=== PATIENT | male | born 1965 | race Caucasian/White ===

== ENCOUNTER 2018-01-04 16:17 | Inpatient (IN) | payer OTHER ==
--- OUTSIDE RECORDS SUMMARY | 2018-01-04 17:38 | XMS REPORT | Clinical Summary ---
:1965 Author Organization [facility] Address [address] [place] [address] Care Team Providers Name Role Phone Chavo Esquivel MD Primary Care Provider Allergies Active Allergy Reactions Severity Noted Date Comments Iodine And Iodide Other (See Comments) 04/02/2016 States it causes pain Containing Products Shellfish Derived Hives 04/02/2016 Current Medications Prescription Sig. Disp. Refills Start Date End Date Status sevelamer (RENVELA) 800 Take 800 mg by Active mg tablet mouth daily. atorvastatin (LIPITOR) Take 80 mg by Active 80 MG tablet mouth daily. B complex-vitamin Take 1 tablet Active C-folic acid by mouth daily. (NEPHRO-MARLEN) 0.8 mg tablet aspirin (ECOTRIN) 81 MG Take 81 mg by Active enteric coated tablet mouth daily. omeprazole (PriLOSEC) 40 Take 1 capsule 30 capsule 0 09/21/2016 Active MG capsuleIndications: (40 mg total) Gastroesophageal reflux by mouth daily disease, esophagitis before presence not specified breakfast. Active Problems Problem Noted Date ESRD (end stage renal disease) on dialysis 10/15/2016 Diabetes mellitus type 2 in obese 04/02/2016 Encounters Date Type Specialty Care Team Description 10/13/2017 Telephone General Surgery Racheal Edwards MA after 01/03/2017 Social History Tobacco Use Types Packs/Day Years Used Date Never Smoker Sex Assigned at Date Recorded Not on file Last Filed Vital Signs Not on file Plan of Treatment Health Maintenance Due Date Last Done Comments DIABETIC FOOT EXAM 1975 DIABETIC RETINAL EYE EXAM 1975 URINE MICROALBUMIN 1975 COLON CANCER SCREENING 2015 SHINGRIX VACCINE (#1) 2015 INFLUENZA VACCINE 03/16/2018 Results Not on fileafter 01/03/2017 Insurance Payer Benefit Plan / Group Subscriber ID Type Phone Address [employer]ISON [employer]OPER OPEN ACCESS/NETWORK xxxxxxxxxxx [facility] [place] MEDICARE MEDICARE PART A AND B xxxxxxxxxx Medicare [place], [place] Home: [address] [phone] [place] [phone] VARINDER JUAREZ Transplant Self 1965 Home: [address] [phone] [place] [phone]
[2018-01-04] MEDS ORDERED: CEFTRIAXONE/SWI 1gm 1 GM/10 ML SYR IVP SCH (21:00)
--- NOTE | 2018-01-04 21:26 | RAD REPORT ---
EXAM DESCRIPTION: MRI - Foot Right Wo Cont - 01/04/2018 9:01 pm CLINICAL HISTORY: Right foot swelling, pain and ulceration COMPARISON: December 30, 2017 x-ray TECHNIQUE: Axial, sagittal, and coronal magnetic images of the right foot were obtained FINDINGS: No significant abnormal signal within the bones is seen to suggest osteomyelitis. Diffuse edema is present within subcutaneous tissues which may indicate cellulitis. Soft tissue abscess is not seen. No fracture or or dislocation is noted. . IMPRESSION: No evidence of osteomyelitis
[2018-01-04] MEDS: CEFTRIAXONE/SWI 1gm 1 GM/10 ML SYR IVP SCH (21:34)
[2018-01-05 05:39] LABS: Urine Appearance CLOUDY; Urine Bilirubin NEGATIVE (NEG); Urine Blood 3+ (NEG); Urine Color YELLOW; Urine Glucose TRACE (NEG); Urine Protein 2+ (NEG); Urine Urobilinogen 0.2 mg/dL (0.2-1.0)
[2018-01-05 05:41] LABS: Urine Microscopic Reflex ORDER UMIC
[2018-01-05 06:15] LABS: Urine Bacteria <20 /HPF (NONE SEEN); Urine Culture Reflex Order REFLEXED; Urine RBC >50 /HPF (NONE SEEN)
[2018-01-05] MEDS: SEVELAMER CARBONATE 800 MG TABLET PO SCH ×4 (08:00→17:00)
[2018-01-05] MEDS ORDERED: INSULIN DETEMIR 100 UNIT/1 ML INSULIN SQ SCH (09:00)
[2018-01-05] MEDS: CODEINE 30MG/APAP 300MG TAB PO PRN ×2 (09:36→20:00)
[2018-01-05] MEDS: ASPIRIN 81 MG CHEWABLE TABLET PO SCH (09:38)
[2018-01-05] MEDS: CEFTRIAXONE/SWI 1gm 1 GM/10 ML SYR IVP SCH ×2 (09:38→20:01)
[2018-01-05] MEDS: INSULIN LISPRO 100 UNIT/1 ML SQ SCH ×3 (09:39→17:00)
[2018-01-05 17:21] LABS: Absolute Lymphocytes (CBC) 1.2 K/uL (0.7-4.9); Absolute Monocytes 0.5 K/uL (0.1-1.3); Absolute Neutrophil 4.4 K/uL (1.8-8.0); Basophils % 0.1 % (0-1.3); Eosinophils % 0.1 % (0-4.4); Hematocrit 33.7 % (39.6-49.0); Lymphocytes % 19.2 % (15.3-44.8); MCH 34.2 pg (27.0-35.0); MCV 99.1 fL (80-100); MPV 8.3 fL (7.6-11.3)
[2018-01-05] MEDS ORDERED: GLUCAGON 1 MG/VIAL IM PRN (17:23)
[2018-01-05] MEDS ORDERED: D50W 25 GM/50 ML SYRINGE IV PRN (17:23)
[2018-01-05 17:26] LABS: Potassium 4.2 mEq/L (3.6-5.0)
[2018-01-05] MEDS: COLLAGENASE 30 GM OINTMENT TOP SCH (17:30)
[2018-01-05] MEDS: INSULIN DETEMIR 100 UNIT/1 ML INSULIN SQ SCH (17:30)
--- NOTE | 2018-01-05 20:30 | CON ---
History Of Present Illness: The patient has significant history of diabetes mellitus, end-stage rafael l disease, came in with right foot diabetic foot ulcer. Complains of being tender down to the bone. No other problems. Currently being treated with IV antibiotic including Rocephin. Past Medical History: Triple bypass surgery, AV fistula for dialysis, and gastric bypass surgery aft er which he has lost 70 pounds. Family History: Noncontributory. Medications: Rocephin. See MARs for other medication. Allergies: IODINE AND SHELLFISH. Review of Systems: A 10-point review was performed. Physical Examination: General: This is a 52-year-old male, sitting in bedside chair. Denies any headache, nausea, vomitin g, chest pain, abdominal pain, constipation, or diarrhea. Vital Signs: Temperature 97.8, pulse 68, respiration 18, blood pressure 159/79. HEENT: Unremarkable. Neck: Supple. Lungs: Basal crackles. Heart: S1, S2. Regular. Abdomen: Soft, nontender. Bowel sounds positive. Extremity: Right foot ulceration noted on the dorsal aspect of right foot on the metatarsal region a norman third and fourth metatarsal. Diagnostic Data: MRI of the foot shows no evidence of osteomyelitis. Laboratory Data: No CBC has been ordered. Chemistry shows glucose of 127. Assessment And Plan: Right foot cellulitis and diabetic foot ulcer. Recommend to apply Santyl to th e wound site with cover with foam and continue Rocephin. CBC and CMP to be ordered. We will follow the patient closely. Thank you Dr. Freeman for consult. NF/MODL Voice ID: [id number] Report ID: [id number]
--- NOTE | 2018-01-05 23:21 | HP ---
Date of Admission: 01/04/2018 Chief Complaint: Pain, right foot. History Of Present Illness: A 52-year-old male who was seen in the office last week for pain and swe lling and redness of the right foot. He was found to have cellulitis with minimal drainage. Drainag e was cultured. The patient wanted the IV antibiotic therapy through dialysis site. I spoke to his nut grinder, Dr. Savage, and arranged for vancomycin. The patient was getting vancomycin dialysis. H is cultures came back positive for Proteus. I called the patient and explained. He wanted to again have antibiotics done through the dialysis. A copy of the culture report was faxed to his dialysis d octor. He claimed that his wound was getting better; however, later his brother visited and looked a t the wound and to him it looked worse and he was brought to the office. At this point, he was found to have evidence of enlargement of the area of infection. In view of continued symptoms worsening, the patient is admitted for IV antibiotic therapy and possible debridement of the foot wound. Past Medical History: Positive for end-stage renal disease, on dialysis. Other history includes; 1.History of coronary artery disease. 2.Hypertension. 3.Hyperlipidemia. Past Surgical History: Positive for; 1.Coronary angioplasty. 2.Coronary bypass surgery. Family History: Noncontributory. Personal History: He is not a smoker. Allergies: HE IS ALLERGIC TO IODINE DYE AND SHELLFISH. Home Medicines: Please refer to chart. He is on insulin. Physical Examination: General: Revealed a 52-year-old male, alert, in moderate pain. HEENT: Negative. Neck: Supple. JVD negative. Chest: Old surgical scar, otherwise negative. Heart: Regular. Abdomen: Soft. Extremities: There is an area of open wound with minimal extubation of the right foot. There are pi gmentary changes around the open wound. Laboratory Data: White count not available. Assessment: 1.Infected wound and cellulitis, right foot. 2.Type 2 diabetes, on insulin. 3.Known coronary artery disease. 4.Status post coronary artery bypass surgery and angioplasty. 5.History of hyperlipidemia. Plan: The patient is started on Rocephin as for wound culture. His wound is re-cultured. The patie nt had a consult with Infectious Disease as well as Surgery in formulating a plan for his infection. RRK/MODL Voice ID: [id number]
--- NOTE | 2018-01-06 03:07 | CON ---
Date of Consultation: 01/05/2018 Additional Consulting Physician: Dr. Freeman. Reason For Consultation: Elevated BUN and creatinine, hypertension. History Of Present Illness: This is a 52-year-old gentleman, well known to me from the dialysis, [facility] significant past medical history of: 1.Hypertension. 2.End-stage renal disease, on hemodialysis, Wednesday, Wednesday, Wednesday at [facility]. 3.Hyperlipidemia. 4.Secondary hyperparathyroidism. 5.Diabetes, complicated with neuropathy and nephropathy. The patient came to the hospital with foot infection for his right foot. No trauma. No fever or chi lls. The patient had dialysis day before without any complication. Past Medical History: Include: 1.Hypertension. 2.Hyperlipidemia. 3.Diabetes. 4.Coronary artery disease status post [facility], complicated with congestive heart failure. 5.End-stage renal disease, on hemodialysis, Wednesday, Wednesday, Wednesday. Past Surgical History: Include: 1.PermCath. 2.AV fistula. 3.Appendectomy. 4.CABG. 5.PTCA. Social History: Denies smoking. Denies drinking. Denies drug abuse. Family History: Positive for diabetes. Review of Systems: Head and Neck: No red eye. No ear pain. GI: No nausea. No vomiting. : No polyuria. No dysuria. No hematuria. PROGRAMMER: Not applicable. Respiratory: No shortness of breath. Cardiovascular: No chest pain. Neurologic: Has neuropathy. Musculoskeletal: Has foot pain. Endocrine: No polydipsia. Skin: No rash. Physical Examination: General: When I saw the patient, the patient was lying in bed, slightly on pain in his foot. Vital Signs: Blood pressure 149/69, pulse of 68. Chest: Crackles in the base. Heart: S1, S2. Regular. Abdomen: Soft, nontender. Extremities: Trace edema, erythema with bruises on the right dorsal area of his foot. Laboratory Data: WBC 6.1, hemoglobin and hematocrit 11.6/33.7, platelets 153. Sodium 134, potassium 4.2, bicarb 28, BUN 25, creatinine 5.5, calcium of 9. Current Medications: Include: 1.Aspirin. 2.Ceftriaxone. 3.Renvela. 4.Insulin. Assessment And Plan: 1.End-stage renal disease. Normal volume. No hyperkalemia. Slight alkalosis. I am going to arran ge for dialysis today as per his schedule. 2.Hypertension, controlled, optimal. Continue current medication. 3.Anemia. No need for CELI. 4.Secondary hyperparathyroidism. Continue binder. 5.Foot infection. Continue current antibiotic. We will follow up culture. ALEXANDRA Voice ID: [id number] Report ID: [id number]
[2018-01-06] MEDS: SEVELAMER CARBONATE 800 MG TABLET PO SCH ×3 (08:00→17:00)
[2018-01-06] MEDS: INSULIN DETEMIR 100 UNIT/1 ML INSULIN SQ SCH (09:00)
[2018-01-06] MEDS: COLLAGENASE 30 GM OINTMENT TOP SCH (09:00)
[2018-01-06] MEDS: CEFTRIAXONE/SWI 1gm 1 GM/10 ML SYR IVP SCH ×2 (09:50→21:37)
[2018-01-06] MEDS: ASPIRIN 81 MG CHEWABLE TABLET PO SCH (09:50)
[2018-01-06] MEDS: INSULIN LISPRO 100 UNIT/1 ML SQ SCH ×3 (09:50→17:32)
[2018-01-06] MEDS: CODEINE 30MG/APAP 300MG TAB PO PRN ×2 (09:56→23:45)
--- NOTE | 2018-01-06 13:21 | P.CNS ---
Date of Consult: 01/05/18 Reason for Consult: infected diabetic foot ulcer History of Present Illness: 52 y/o male with cellulitis and diabetic foot ulcer , new onset rigth foot, unknown etiology Allergies iodine Allergy (Severe, Verified 04/22/15 23:25) Shortness of breath Iodine-Iodine Containing Allergy (Severe, Uncoded 04/22/15 23:25) Shortness of breath shell fish Allergy (Intermediate, Uncoded 04/22/15 23:25) Hives SHELLFISH Allergy (Intermediate, Uncoded 04/22/15 23:25) Hives/Rash Home Medications: Insulin Aspart [Novolog] 5 unit SQ TIDWM 07/17/14 Insulin Glargine Human [Lantus*] 30 units SUBQ DAILY 07/17/14 Sevelamer Carbonate [Renvela*] 2,400 mg PO TIDWM 09/24/14 Aspirin 81 mg PO DAILY 02/08/15 - Past Medical/Surgical History Diabetic: Yes -: HTN -: Hyperlipidemia -: PA -: IDDM -: CHF -: cellulitis on face -: CABG x 3 vessels -: Cardiac cath with 1 stent -: Appy -: upper left arm HD graph - Family History Mother Medical History: Hypertension, Diabetes, Cancer, Liver disease, Other (see notes ) Notes: Breast CA - Social History Smoking Status: Never smoker Alcohol use: No CD- Drugs: No Caffeine use: Yes Review of Systems General: Fever (no), Chills (no) Eyes: Unremarkable ENT: Unremarkable Respiratory: Unremarkable Cardiovascular: Unremarkable Gastrointestinal: Unremarkable Genitourinary: Other (ESRD) Musculoskeletal: As per HPI Integumentary: As per HPI Physical Examination Temp Pulse Resp BP Pulse Ox 97.9 F 69 20 153/70 H 98 01/06/18 08:00 01/06/18 08:00 01/06/18 08:00 01/06/18 08:00 01/06/18 08:00 General: Alert, In no apparent distress, Oriented x3 HEENT: PERRLA, EOMI, Sclerae nonicteric Neck: Supple Respiratory: Clear to auscultation bilaterally Gastrointestinal: Soft and benign Integumentary: Skin breakdown, Tenderness/swelling, Erythema, Warmth, Diabetic ulcer Neurological: Normal speech Laboratory Data (last 24 hrs) 01/05/18 16:56: Sodium 134 L, Potassium 4.2, BUN 25 H, Creatinine 5.55 H*, Glucose 177 H 01/05/18 16:56: WBC 6.1, Hgb 11.6 L, Hct 33.7 L, Plt Count 153 Conclusions/Impression: excional debridement under anesthesia per pt request due to pain BAR fully explained including but not limited to infection, bleeding, damage to adjacent structures. non healing wound PA even Pt counseled about diabetes control and proper shoes
--- NOTE | 2018-01-06 13:24 | P.PN ---
Subjective Date of Service: 01/06/18 Chief Complaint: ESRD, infected diabetic foot ulcer right Subjective: No new changes, Improving Review of Systems General: Unremarkable Eyes: Unremarkable Cardiovascular: Unremarkable Gastrointestinal: Unremarkable Musculoskeletal: As per HPI Integumentary: As per HPI Physical Examination - Vital Signs Temperature: 97.9 F Blood Pressure: 153/70 Pulse: 69 Respirations: 20 Pulse Ox (%): 98 - Physical Exam General: Alert, Oriented x3, Cooperative HEENT: PERRLA, EOMI Neck: Supple Gastrointestinal: Soft and benign Integumentary: Skin breakdown, Tenderness/swelling, Erythema, Warmth, Diabetic ulcer - Studies Laboratory Data (last 24 hrs) 01/05/18 16:56: Sodium 134 L, Potassium 4.2, BUN 25 H, Creatinine 5.55 H*, Glucose 177 H 01/05/18 16:56: WBC 6.1, Hgb 11.6 L, Hct 33.7 L, Plt Count 153 Microbiology Data (last 24 hrs): 01/05/18 04:25 Wound - Right Foot Gram Stain - Final 01/05/18 04:25 Wound - Right Foot Gram Stain - Final Imagings Data: MRI, No osteo Assessment And Plan - Plan NPO after midnight Excisional debridement BAR explained again IV abx
--- NOTE | 2018-01-06 16:19 | PN ---
Subjective: The patient sitting in bedside chair, not in any acute distress. Objective: Vital Signs: Temperature 97, respirations 16, blood pressure 150/70. Lungs: Basal crackles. Heart: S1, S2. Regular. Abdomen: Soft, nontender. Bowel sounds positive. Extremities: 2+ edema in the right leg, 1+ edema in the left leg. Laboratory Data: Shows WBC 6, hemoglobin 11.6, platelets are 153. Chemistry; sodium 134, potassium 4.2, chloride 96, bicarb 28, BUN 25, creatinine 5.5, glucose is 177. Assessment And Plan: Micro data showing gram-negative rods in the right foot wound culture, possibly either Pseudomonas or E. coli, most likely. We will recommend the patient to be on Levaquin pending culture reports. Continue Rocephin for now. We will follow the patient closely. NF/MODL Voice ID: [id number] Report ID: [id number]
[2018-01-06] MEDS: ENOXAPARIN 30 MG/0.3 ML SQ SCH ×2 (17:00→17:33)
--- NOTE | 2018-01-07 01:14 | PN ---
Date of Progress Note: 01/06/2018 Subjective: The patient is doing well, status post dressing on his foot. No nausea. No vomiting. Afebrile. Admitted with foot infection. Workup did not show any osteomyelitis. Physical Examination: Vital Signs: Blood pressure of 149/74, pulse of 60, afebrile. Chest: Clear to auscultation. Heart: S1, S2. Regular. Abdomen: Soft, nontender. Extremities: Dressing on the right foot. Trace edema on the left. Laboratory Data: WBC 6.1, H and H 11.6/33.7. Sodium 134, potassium 4.2, bicarb 28, BUN 25, creatini ne 5.5, and calcium 9. Medications: Current medications the patient is on include; 1.Aspirin. 2.Ceftriaxone. 3.Renvela. 4.Insulin. 5.Codeine. Assessment And Plan: 1.End-stage renal disease. Normal volume. We will arrange for dialysis tomorrow. 2.Hypertension, controlled, optimal. Continue current medication. 3.Foot infection. Diabetic foot. Culture gram-negative. We are going to continue current antibiot ic. We will follow up with ID if possible to place him on Levaquin. Plan for debridement tomorrow. 4.Diabetes, as by primary. MAE/TENNILLE Voice ID: [id number] Report ID: [id number]
[2018-01-07 06:52] VITALS: BMI 39.3
[2018-01-07] MEDS: SEVELAMER CARBONATE 800 MG TABLET PO SCH ×3 (08:00→16:55)
[2018-01-07] MEDS: INSULIN LISPRO 100 UNIT/1 ML SQ SCH ×3 (08:00→16:18)
[2018-01-07] MEDS: ASPIRIN 81 MG CHEWABLE TABLET PO SCH (09:00)
[2018-01-07] MEDS: CEFTRIAXONE/SWI 1gm 1 GM/10 ML SYR IVP SCH ×2 (09:00→21:15)
[2018-01-07] MEDS: INSULIN DETEMIR 100 UNIT/1 ML INSULIN SQ SCH (09:00)
[2018-01-07] MEDS: COLLAGENASE 30 GM OINTMENT TOP SCH (09:00)
[2018-01-07] MEDS ORDERED: NA CHLORIDE 0.9% 500 ML ONE (12:39)
[2018-01-07] MEDS ORDERED: PROPOFOL 200 MG/20 ML VIAL IV ONE (12:50)
[2018-01-07] MEDS ORDERED: MIDAZOLAM HCL 2 MG/2 ML INJ ONE (12:50)
[2018-01-07] MEDS ORDERED: FENTANYL CITR 100 MCG/2 ML ONE (12:51)
[2018-01-07] MEDS ORDERED: ONDANSETRON HCL 40 MG/20 ML VIAL ONE (12:51)
[2018-01-07] MEDS ORDERED: BUPIVACAINE 0.5% PF 10 ML VIAL ONE (12:56)
--- NOTE | 2018-01-07 13:11 | PN ---
Date of Progress Note: 01/06/2018 The patient was seen yesterday. The patient's wound looks better, but there is a small amount of tara grenous tissue around the wound. The patient is scheduled for surgery 01/07/2018. I started the pat ient on Lovenox for prevention of DVT. SIN/TENNILLE Voice ID: [id number] Report ID: [id number]
--- NOTE | 2018-01-07 13:11 | PN ---
The patient is doing better. His temperature is normal. The patient is scheduled for surgery this m orning. There is no active drainage anymore. The patient will be continued on the same antibiotic. SIN/TENNILLE Voice ID: [id number] Report ID: [id number]
--- NOTE | 2018-01-07 13:20 | P.BOP ---
Preoperative diagnosis: right foot infected necrotic diabetes ulcer Postoperative diagnosis: same Primary procedure: Excisional subcutaneous debridement R foot infected necrotic diabetes ulcer Secondary procedure: 4 x 3.5 x 1.5 cm Estimated blood loss: <5cc Specimen: culture Findings: right foot infected necrotic diabetes ulcer Anesthesia: General Complications: None Drain(s): Other Transferred to: Recovery Room Condition: Good
[2018-01-07] MEDS: ENOXAPARIN 30 MG/0.3 ML SQ SCH (16:54)
[2018-01-07 17:32] LABS: Albumin 3.5 g/dL (3.2-5.5); Phosphorus 4.4 mg/dL (2.5-4.3); Potassium 4.6 mEq/L (3.6-5.0)
[2018-01-07] MEDS ORDERED: NA CHLORIDE 0.9% 100 ML ONE (21:12)
--- NOTE | 2018-01-07 21:40 | PN ---
Subjective: The patient had a right foot DFU, which has been debrided by Dr. Tyson. The patient is doing well, getting dialyzed. Currently being treated with IV antibiotic including Rocephin. Objective: Vital Signs: Temperature 98, pulse 73, respirations 16, and blood pressure 119/60. Assessment And Plan: Right knee diabetic foot ulcer, status post debridement. Wound is under surgic al dressing. Continue Rocephin for now. We will re-evaluate the patient for possible discharge with oral antibiotic if wound looks good. We will follow the patient closely. NF/MODL Voice ID: [id number] Report ID: [id number]
[2018-01-07 21:42] VITALS: O2SAT 95
--- NOTE | 2018-01-08 01:20 | OP ---
Date of Procedure: 01/07/2018 Surgeon: Júnior Tyson MD Breaker Mechanic: None. Preoperative Diagnosis: Right foot infected necrotic diabetic ulcer. Postoperative Diagnosis: Right foot infected necrotic diabetic ulcer. Procedure: Excisional subcutaneous debridement of right foot infected necrotic diabetic ulcer, 4 x 3 .5 x 1.5 cm. Estimated Blood Loss: Less than 5 cc. Specimen: Necrotic tissue and pus. Findings: Necrotic ulcer all the way down to tendon. Tendon seems to be viable and muscle seems to be viable. Packing is wet-to-dry. Indications: This is a case of a 52-year-old patient with renal failure and hemodialysis, comes to [facility] with an infected foot ulcer. Benefits, alternatives, and risks of debridement fully explained to t he patient, which include but are not limited to infection, bleeding, damage to adjacent structures, anesthesia complication, nonhealing wound, AR, and even . He also understands this may not reli belkis any symptoms. He might need more than one surgical intervention. He will require wound care. T he patient signed a consent. Description Of Procedure: The patient was brought to the operating room, placed in supine position. Anesthesia was given without complication. A time-out was called. The right foot was prepped and d raped in usual sterile fashion. Local anesthesia was applied followed by a sharp incision of the ski n. The necrotic tissue was removed. There were some areas that were still viable so we are going to leave behind. There was no necrosis. The necrotic area was removed. Pus was obtained for culture. Tendons were exposed but they do not seem to be involving the necrosis. The area was profusely irr igated. Hemostasis obtained. The area was packed with wet-to-dry dressing. The patient tolerated the procedure well. The patient on his way to recovery in stable co ndition. HM/MODL Voice ID: [id number] Report ID: [id number]
--- NOTE | 2018-01-08 02:48 | PN ---
Date of Progress Note: 01/07/2018 Chief Complaint: End-stage renal disease, on dialysis. Subjective: The patient presented to the hospital because of nonhealing lower extremity wound, osteomyelitis. He is undergoing debridement today. Dialysis is scheduled for today for metabolic clearance and to obtain ultrafiltration. Review of Systems: Denies fever or chills. Physical Examination: Lungs: Clear to auscultation bilaterally. Heart: S1, S2. Abdomen: Soft, benign. Extremities: Right foot erythema with some necrotizing changes. Neurologic: Moving extremities. Cranial nerves intact. Laboratory Data: Sodium 134, potassium 4.6, chloride 97, CO2 of 27, BUN 37, creatinine 6.68, calcium 8.7, phosphorus 4.4, albumin 3.5. Impression And Plan: 1. End-stage renal disease. Continue dialysis with ultrafiltration scheduled for today. 2. Continue p.o. fluid restriction to control dilutional hyponatremia. 3. Hypertension. Blood pressure in acceptable control. Continue medication. 4. Anemia and chronic kidney disease. Monitor hemoglobin level. Adjust CELI as needed. 5. Renal osteodystrophy. Phosphorus level at target range. Monitor electrolytes. Continue low phosphorus diet and binders. 6. Hypoalbuminemia. Increase p.o. protein intake. 7. Lower extremity cellulitis, osteomyelitis. The patient is undergoing debridement. Continue wound care and antibiotics of broad spectrum. LILI/TENNILLE Voice ID: [id number] Report ID: [id number]
[2018-01-08] MEDS: SEVELAMER CARBONATE 800 MG TABLET PO SCH ×3 (08:00→11:15)
[2018-01-08] MEDS: INSULIN LISPRO 100 UNIT/1 ML SQ SCH ×2 (08:00→11:15)
[2018-01-08] MEDS: INSULIN DETEMIR 100 UNIT/1 ML INSULIN SQ SCH (08:57)
[2018-01-08] MEDS: ASPIRIN 81 MG CHEWABLE TABLET PO SCH (08:57)
[2018-01-08] MEDS: CEFTRIAXONE/SWI 1gm 1 GM/10 ML SYR IVP SCH (08:58)
[2018-01-08] MEDS: COLLAGENASE 30 GM OINTMENT TOP SCH (08:58)
[2018-01-08 11:13] VITALS: TEMP 98.8
--- NOTE | 2018-01-08 11:35 | P.DS ---
Admission Date: 01/04/18 Discharge Date: 01/08/18 Primary Care Provider: Dr. Freeman(I am covering for him) Disposition: ROUTINE DISCHARGE Discharge Condition: GOOD Reason for Admission: ESRD, infected diabetic foot ulcer right Consultations: Surgery-Dr. Tyson Nephrology-Dr. Kulkarni Infectious disease-Dr. Scales Procedures: Surgery: Date of Procedure: 01/07/2018 Surgeon: Júnior Tyson MD General Service Technician: None. Preoperative Diagnosis: Right foot infected necrotic diabetic ulcer. Postoperative Diagnosis: Right foot infected necrotic diabetic ulcer. Procedure: Excisional subcutaneous debridement of right foot infected necrotic diabetic ulcer, 4 x 3.5 x 1.5 cm. Estimated Blood Loss: Less than 5 cc. Specimen: Necrotic tissue and pus. Findings: Necrotic ulcer all the way down to tendon. Tendon seems to be viable and muscle seems to be viable. Packing is wet-to-dry. - Problems (1) End stage renal disease Current Visit: Yes Status: Chronic (2) Diabetes mellitus Current Visit: Yes Status: Chronic Qualifiers: Diabetes mellitus type: type 2 Diabetes mellitus local intermodal truck driver insulin use: with local intermodal truck driver use Diabetes mellitus complication status: with skin complications Diabetes mellitus complication detail: with foot ulcer Qualified Code(s): E11.621 - Type 2 diabetes mellitus with foot ulcer; L97.509 - Non-pressure chronic ulcer of other part of unspecified foot with unspecified severity; Z79.4 - prison (current) use of insulin (3) Obesity Current Visit: Yes Status: Chronic Qualifiers: Obesity type: due to excess calories Obesity classification: adult class 2 (BMI 35 - 39.9) Serious obesity comorbidity presence: with serious comorbidity Body mass index: BMI 38.0-38.9 Qualified Code(s): E66.01 - Morbid (severe) obesity due to excess calories; Z68.38 - Body mass index (BMI) 38.0-38.9, adult (4) Diabetic foot infection Onset Date: 01/05/18 Current Visit: Yes Status: Acute Brief History of Present Illness: 52-year-old male hospitalized for necrotic diabetic foot ulcer to the right foot. Patient with history of diabetes and end-stage renal disease on dialysis. Patient started on antibiotic therapy Hospital Course: During his stay. Patient was evaluated by surgery and infectious disease. Surgery recommended debridement. Excisional subcutaneous debridement of right foot was done. Necrotic tissue was reported to be all the way down to the tendon. Tendon seemed to be viable. Wound culture was positive for Proteus. MRI did not show any osteomyelitis. Patient has done well post procedure. At discharge patient will continue with Levaquin 250 mg every 48 hr for 5 doses. Patient will follow up at [facility] in 1 week to continue his care and treatment. Patient to continue with current wound care changes. Patient has diabetes. Patient will continue with his insulin regimen. Recommendation is to maintain blood sugars less 140 fasting and less than 2 after meals. Further adjustment can be done by his PCP. Patient has end-stage renal disease. Patient will continue with dialysis treatment as scheduled. Vital Signs/Physical Exam: Temp Pulse Resp BP Pulse Ox 98.8 F 87 16 148/65 H 99 01/08/18 08:00 01/08/18 08:00 01/08/18 08:00 01/08/18 08:00 01/08/18 08:00 General: Alert, In no apparent distress, Oriented x3, Cooperative HEENT: Atraumatic Neck: Supple Respiratory: Clear to auscultation bilaterally, Normal air movement Cardiovascular: Normal pulses, Regular rate/rhythm Gastrointestinal: Normal bowel sounds, Soft and benign, Non-distended, No masses , No rebound, No guarding Musculoskeletal: No tenderness, No warmth Integumentary: Other (Diabetic wound to the right foot appears stable. No exudate noted. Mild erythema noted. Postsurgical changes noted.) Neurological: Normal speech, Normal strength at 5/5 x4 extr, Normal tone, Normal affect Laboratory Data at Discharge: WBC 6.1 K/uL (4.3-10.9) 01/05/18 16:56 Hgb 11.6 g/dL (13.6-17.9) L 01/05/18 16:56 Hct 33.7 % (39.6-49.0) L 01/05/18 16:56 Plt Count 153 K/uL (152-406) 01/05/18 16:56 Sodium 134 mEq/L (135-145) L 01/07/18 16:14 Potassium 4.6 mEq/L (3.6-5.0) 01/07/18 16:14 BUN 37 mg/dL (6-20) H 01/07/18 16:14 Creatinine 6.68 mg/dL (0.61-1.24) H* D 01/07/18 16:14 Glucose 101 mg/dL (65-120) 01/07/18 16:14 Phosphorus 4.4 mg/dL (2.5-4.3) H 01/07/18 16:14 Home Medications: Insulin Aspart [Novolog] 5 unit SQ TIDWM 07/17/14 Insulin Glargine Human [Lantus*] 30 units SUBQ DAILY 07/17/14 Sevelamer Carbonate [Renvela*] 2,400 mg PO TIDWM 09/24/14 Aspirin 81 mg PO DAILY 02/08/15 Collagenase [Santyl Ointment*] 1 appl TOP DAILY #30 tube 01/08/18 Levofloxacin [Levaquin] 250 mg PO Q48H #5 tab 01/08/18 Tramadol HCl [Ultram] 50 mg PO TID PRN #15 tablet 01/08/18 New Medications: Collagenase [Santyl Ointment*] 1 appl TOP DAILY #30 tube Levofloxacin [Levaquin] 250 mg PO Q48H #5 tab Tramadol HCl [Ultram] 50 mg PO TID PRN #15 tablet PRN Reason: Pain Patient Discharge Instructions: 1. Patient will need to follow up with his PCP in 1 week to follow up this hospitalization. 2. Patient presented with necrotic diabetic foot ulcer to the right foot. Patient seen by surgery and infectious disease. Surgery was performed for debridement. MRI showed no osteomyelitis. Culture was positive for Proteus. At discharge patient will continue with wound care as directed by surgery and infectious disease. Patient will continue with Levaquin 250 mg every 48 hr up to 5 doses. Patient will follow up at the wound Care Center within 1 week to continue his care and close monitoring. Recommendation on no excessive walking. Tramadol 50 mg 1 pill 3 times a day as needed for pain will be provided to be use as needed. 3. Patient has diabetes. Patient will continue with his insulin regimen. Recommendation is to maintain blood sugars less 140 fasting and less than 200 after meals. Further adjustment can be done by his PCP. 4. Patient has end- stage renal disease. Patient will continue with dialysis as directed. Diet: ADA Activity: Fall precautions Time spent managing pt's care (in minutes): 55
[2018-01-08 14:43] VITALS: BP 138/58
--- NOTE | 2018-01-09 00:17 | PN ---
Date of Progress Note: 01/08/2018 Chief Complaint: End-stage renal disease, on dialysis. History Of Present Illness: The patient received dialysis yesterday. The patient was admitted to the hospital because of nonhealing lower extremity wound , diabetic foot infection with osteomyelitis. He underwent debridement yesterday. Review of Systems: Denies fever, chills. Physical Examination: Lungs: Clear to auscultation bilaterally. Heart: S1 and S2. Abdomen: Soft, benign. Extremities: Dressing in place. Impression And Plan: 1. End-stage renal disease. The patient had dialysis done yesterday. Continue on renal diet, p.o. fluid restriction. Monitor renal panel. 2. Hypertension. Blood pressure in acceptable control. Continue medication. 3. Anemia due to chronic kidney disease. Monitor hemoglobin level. Adjust CELI. 4. Renal osteodystrophy. Continue renal diet and binders. Phosphorus level is controlled. Calcium is within normal limits. 5. Osteomyelitis, diabetic foot infection. Continue antibiotics and wound care. 6. Hypoalbuminemia. Increase p.o. protein intake. LILI/TENNILLE Voice ID: [id number] Report ID: [id number] MTDD
== END 2018-01-08 14:05 | disposition home or self-care (01) | DRG 264 ==
LOC: 2ND 17:37
PROVIDERS: ADMIT Internal Medicine; ATTEND Internal Medicine
PROC: 5A1D70Z Performance of Urinary Filtration, Intermittent, Less than 6 Hours Per Day (ICD-10-PCS; 2018-01-05)
PROC: 5A1D70Z Performance of Urinary Filtration, Intermittent, Less than 6 Hours Per Day (ICD-10-PCS; 2018-01-05)
PROC: 0JBQ0ZZ Excision of Right Foot Subcutaneous Tissue and Fascia, Open Approach (ICD-10-PCS; principal; 2018-01-07 12:30)
DX: E11.52 Type 2 diabetes mellitus with diabetic peripheral angiopathy with gangrene (principal); N18.6 End stage renal disease; L03.115 Cellulitis of right lower limb; I96 Gangrene, not elsewhere classified; I12.0 Hypertensive chronic kidney disease with stage 5 chronic kidney disease or end stage renal disease; E66.01 Morbid (severe) obesity due to excess calories; Z68.38 Body mass index [BMI] 38.0-38.9, adult; E11.22 Type 2 diabetes mellitus with diabetic chronic kidney disease; Z79.4 Long term (current) use of insulin; B96.4 Proteus (mirabilis) (morganii) as the cause of diseases classified elsewhere; D63.1 Anemia in chronic kidney disease; N25.0 Renal osteodystrophy; E88.09 Other disorders of plasma-protein metabolism, not elsewhere classified; E11.621 Type 2 diabetes mellitus with foot ulcer; E11.628 Type 2 diabetes mellitus with other skin complications; Z91.013 Allergy to seafood
CPT/HCPCS: 36415; 80048; 80069; 81003; 81015; 82962; 85025; 87070; 87075; 87077; 87086; 87088; 87186; 87205; 88304; 88305; 90935; J0696; J1650; J2250; J2405; J3010; J3590

== ENCOUNTER 2024-04-06 10:41 | Inpatient (IN) | payer OTHER ==
[2024-04-06] MEDS ORDERED: ACETAMINOPHEN 500 MG TAB PO PRN (14:48)
[2024-04-06] MEDS ORDERED: NITROGLYCERIN 0.4 MG/TAB SL PRN (15:08)
[2024-04-06] MEDS ORDERED: NITROGLYCERIN 2% TOP PRN (15:10)
[2024-04-06] MEDS: OZEMPIC 0.5 MG SQ SCH (15:15)
[2024-04-06] MEDS ORDERED: NITROGLYCERIN 1 GM PKT TD PRN (16:11)
[2024-04-06] MEDS: SENOSIDES 8.6 MG TAB PO SCH (21:00)
[2024-04-06] MEDS: MINOCYCLINE HCL 50 MG CAP PO SCH (21:02)
[2024-04-06] MEDS: TICAGRELOR 90 MG TABLET PO SCH (21:02)
[2024-04-06] MEDS: MIDODRINE HCL 5 MG TABLET PO SCH (21:02)
[2024-04-06] MEDS: HYDROCODONE/APAP 5/325 MG TAB PO PRN (21:02)
[2024-04-06] MEDS: GABAPENTIN 100 MG CAP PO SCH (21:02)
[2024-04-06] MEDS: ATORVASTATIN 40 MG TAB PO SCH (21:02)
[2024-04-06] MEDS: MELATONIN 3 MG TABLET PO PRN (21:02)
[2024-04-07] MEDS: METOPROLOL XL 25 MG TAB PO SCH (05:03)
[2024-04-07] MEDS: ISOSORBIDE MONO SR 30 MG TAB PO SCH (07:21)
[2024-04-07] MEDS: ASPIRIN EC 81 MG TAB PO SCH (07:21)
[2024-04-07] MEDS: PENTOXIFYLLINE ER 400 MG TAB PO SCH (07:22)
[2024-04-07] MEDS: DULOXETINE 20 MG CAP PO SCH (07:23)
[2024-04-07] MEDS: MEDIHONEY 44 ML TOPICAL TUBE TOP SCH (11:10)
[2024-04-07] MEDS: COLLAGENASE 30 GM OINTMENT TOP SCH (11:11)
[2024-04-07] MEDS: SEVELAMER CARBONATE 800 MG TABLET PO SCH (11:52)
--- NOTE | 2024-04-07 13:58 | P.RH.PN ---
Estimated Length of Stay: 10 Expected Discharge Date: 04/15/24 Discharge Disposition Plan: Home Family Support: Yes Business Project Manager Goal: Mobility, Transfers, Self Care Vital Signs: Last Vital Signs Temp 96.6 F L 04/07/24 07:35 Pulse 63 04/07/24 07:35 Resp 18 04/07/24 07:35 BP 158/61 H 04/07/24 07:35 Pulse Ox 100 04/07/24 07:35 Weight: 186 lb Wound Present: Yes Closed Surgical Incision Present: Yes Physician Update: Labs to be reviewed after draw with hemodialysis. He requires daily wound care of left leg. CGA to min with transfers. Left leg stage II. CGA with transfers using a grab bars. Mod assist with showering. Summary: Patient's care plan and [facility] goals have been reviewed and revised as necessary. Please see the Rehabilitation Signature page for all necessary signatures.
[2024-04-07] MEDS: VITAMIN K (ADULT) 10 MG/ML SQ SCH (16:29)
[2024-04-07] MEDS: VITAMIN K PO SCH (16:49)
[2024-04-07] MEDS: NEPRO SHAKE 237 ML CAN PO SCH (19:26)
--- NOTE | 2024-04-07 20:23 | CON ---
Date of Consultation: 04/07/2024 Reason For Consultation: ESRD, fluid and electrolyte management. History Of Present Illness: This is a 58-year-old man with past medical history of end-stage renal d isease, on hemodialysis via left tunneled dialysis catheter, have also right upper arm IV fistula, hi story of coronary artery disease, obesity status post gastric bypass, congestive heart failure, hyper tension, hyperlipidemia, peripheral vascular disease. The patient was recently admitted to [facility] for nonhealing left middle finger stump and left lower extremity foot ulcer. The patient went for angiogram, no stent placement. He also was treated for calciphylaxis and he was given sodium thi osulfate with dialysis. The patient was admitted for further evaluation. Past Medical History: End-stage renal disease, diabetes, hypertension, peripheral vascular disease, obesity. Past Surgical History: Angiogram, IV fistula, gastric bypass. Family History: Noncontributory. Allergies: THE PATIENT IS ALLERGIC TO IODINE AND SHELLFISH. Review of Systems: General: Has weakness. Denies fever or chills. HEENT: Denied headache or blurred vision. Respiratory: Denies cough or shortness of breath. Cardiovascular: Denies chest pain or palpitation. GI: Denies nausea, vomiting, diarrhea, or constipation. Musculoskeletal: Left bilateral leg wounds. Physical Examination: Vital Signs: Temperature 96.6, pulse rate 63, blood pressure 158/61. General: Awake and alert. Looks chronically ill. Neck: Supple. No elevated JVD. Heart: Regular rate and rhythm. Normal S1, S2. Chest: Clear to auscultation bilaterally. No rales or wheezes. Abdomen: Soft and nontender. Extremities: The patient has left middle finger amputation, has bilateral lower extremity superficia l wound and foot addressed. Laboratory Data: No labs for today. Assessment And Plan: 1.End-stage renal disease. The patient had dialysis on Wednesday. We will dialyze the patient margarita rrow. Renal dose medication, avoid NSAID and contrast. 2.Anemia of chronic disease. Continue Epogen. Monitor H and H, to transfuse if hemoglobin less haley n 7. 3.Metabolic bone disease. Labs from [facility] showed suppressed PTH of 17, we will dialyze wit h low calcium bath and continue binders. 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 Continue antibiotic and wound care. The patient is status post debridement. PTH is suppressed. We will chec k the phosphorus. Continue sodium thiosulfate 25 g with dialysis. 5.Debility. Continue physical and occupational therapy. Thank you for allowing me to participate in patient care. Total time spent 55 minutes including docu mentation, reviewing labs, and placing orders. JEFFREY Voice ID: [id number] Report ID: [id number]
--- NOTE | 2024-04-08 00:45 | HP ---
Date of Admission: 04/06/2024 Time Of Service: 1 p.m. Chief Complaint: "I have infections in the hands and feet." History Of Present Illness: Mr. Fuentes is a 58-year-old patient with past medical problems including e nd-stage renal disease, on hemodialysis on Wednesday, Wednesday, Wednesday, coronary artery disease, periph eral vascular disease, diabetes mellitus, hypertension, elevated parathyroid hormone level, myocardia l infarction, obesity, who was seen by his physicians at an outside hospital on 03/28 following a lef t middle finger amputation for gangrene. When he returned, it was noted that the finger was also aga in with infection. In addition, infection found in left lower extremity consistent with gangrene. Diane kilgore had multiple wound debridements done and was diagnosed with metabolic acidosis, calciphylaxis, and hyperparathyroidism potentially producing the calciphylaxis. He received antibiotics and was treated with sodium thiosulfate 25 g in 100 mL at the end of every hemodialysis for chelation of the calcium . In addition, antibiotics given. He had electrolyte derangement addressed with hemodialysis and bl ood pressures and blood sugars managed by his regimen of antihypertensive and oral hypoglycemic medic ations. He is evaluated by the Therapy Service and found to require minimum assistance for sit-to-st and transfers, for ambulation, to perform activities of daily living including bathing, dressing, thania leting, donning and doffing of shoes. As a result, he was determined to be an appropriate candidate for inpatient rehabilitation given his medical condition which is complex and his need for therapy to help him return to a prior level of functioning where he can be independent at home. Past Medical History: As noted above. Past Surgical History: Arteriogram done on 10/29/2023 and 11/22/2023. Angiogram for lower extremity access done on 03/03/2024. Amputation of the left middle finger for the middle phalanx and wound de bridement on 03/03/2024. Revision of the left middle finger amputation and debridement on 03/28/2024 , and on 04/04/2024, debridement of the left middle finger. Current Medications: Tylenol 500 mg every 4 hours as needed, aspirin 81 mg daily, Lipitor 40 mg at b edtime, collagenase apply topically to wounds daily, Cymbalta 20 mg daily, Medihoney apply to wounds daily, Nepro shake 237 mL twice daily, Retacrit 4000 units every hemodialysis, gabapentin 100 mg twic e daily, Gatewood 5/325 every 6 hours as needed, Imdur 30 mg daily, magnesium oxide 400 mg daily, melato benji 3 mg at bedtime, Toprol 25 mg daily, midodrine 5 mg 3 times daily, minocycline 50 mg twice daily, Nitrostat 0.4 mg as needed sublingually, Trental 400 mg daily, vitamin K 10 mg injectable received s ubcutaneously every Wednesday, Wednesday, Wednesday, Senokot 8.6 mg at bedtime, Renvela 800 mg 3 times a da y with meals, and sodium thiosulfate 25 g in 100 mL receiving 100 mL every hemodialysis. Also, he is on Brilinta 90 mg twice daily. Allergies: SHELLFISH. Laboratory Studies: White blood cell count 3.2, hemoglobin 9.1, hematocrit 27.9, platelets 68. Sodi um 134, potassium 3.5, glucose 96, BUN 25, creatinine 6.7, calcium 8.5, magnesium 2.0. Family History: Noncontributory. Social History: No alcohol, tobacco, or IV drug use. Lives with family in single family home. Review of Systems: As noted, mild pain in the extremities and the finger, rates it at 1 to 2. He is very enthusiastic a bout getting started with therapy. Otherwise, he is normocephalic and atraumatic and in terms of res t of his review of systems, the left arm does have ihrp-[id number] swelling. There are stasis bruce es noted in the left hand with bandages present. He did say he would like blood draws to be done dur ing hemodialysis as he has very difficult stick and has had procedures done for hemodialysis on the l eft arm which is nonweightbearing. Current Level Of Functioning: Eating is independent. Oral hygiene independent. Supervision for thania garduno. Moderate assistance for showering and upper body and lower body dressing. Moderate assistan ce with donning and doffing footwear. He is independent with rolling pcevx-dg-xozm, ojot-df-tuter, f or sitting to lying and lying to sitting to standing independent. Transfer to toilet supervision, am bulation moderate assistance with a rolling walker, covered 40 feet. Physical Examination: Vital Signs: Blood pressure 136/65 up to 158 and that is over 61, pulse 63, respiratory rate 18, tem perature 96.6, oxygen saturation 100%. Weight 186 pounds, height 5 feet 3 inches, BMI 32.9. General: Mr. Fuentes is resting in a chair beside bed. HEENT: He is normocephalic, atraumatic. Sclerae anicteric. Oropharynx pink and moist. Neck: Supple. Extremities: The left arm is bandaged where there was debridement surgery as noted and there is lich enification of the skin in the left forearm. Also bandaging in the lower extremities. He has diffus e weakness in upper and lower extremities and again nonweightbearing in the left upper extremity. Rehab And Medical Assessment And Plan: Mr. Fuentes is admitted to the inpatient rehabilitation unit [facility] impairment category 20, miscellaneous. Impairment group code is 16, debility, noncardiac, nonpulmo nary. Etiologic diagnosis of gangrene of left leg. Comorbidities are coronary artery disease, chron ic anemia, decreased mobility, decreased physical functioning, diabetes mellitus, end-stage renal dis ease, on hemodialysis Wednesday, Wednesday, Wednesday, hypertension, hyperkalemia, hypercalcemia, calciphyl axis, and hyperparathyroidism. Plan: As noted, he is on hemodialysis. He is receiving calcium chelation with hemodialysis that is on 3 times a week basis. He continues Brilinta for stroke and DVT risk reduction, Senokot for consti pation, vitamin K is being replaced, nitroglycerin as needed for cardiac pain, minocycline for blood pressure control along with metoprolol. He does have Medihoney and collagenase, apply to his wounds in the left upper and lower extremities, gabapentin 100 mg twice daily for neuropathic pain. He has Retacrit for renal failure related anemia, Tylenol 500 mg every 4 hours for pain, aspirin 81 mg daily to minimize his stroke risk, atorvastatin 40 mg at bedtime for dyslipidemia, duloxetine 20 mg daily to facilitate gabapentin 100 mg daily for neuropathic pain as well as improving mood. Gatewood is used sparingly at 5/325 every 6 hours as needed and magnesium oxide 400 mg daily for muscle spasms. Comorbidities That Are Impacting Rehabilitation: Mr. Fuentes first has the calciphylaxis and is on carlos ation, is going to receive that with hemodialysis in addition to his need for minimizing the risk of additional arterial blockages that likely are his etiology of his gangrene. We will have anticoagula tion on board including aspirin, Trental to be continued. He has multiple antihypertensive medicatio ns and medications to support blood pressure, may minimize the use of antihypertensives as he is on m idodrine. Rehab Specific Plan: Mr. Fuentes will have physical and occupational therapy 3 hours a day, 5 of 7 days , to improve his ability to transfer from bed to a chair to a walker, will use a left cher-walker as the left arm is nonweightbearing. He will have therapy for performing his activities of daily living including his dressing, showering, maintaining his personal hygiene, and managing his daily activiti es. He will if need be have speech therapy to be evaluated to determine if it is required. Mr. Fuentes has a good understanding of the process of admission to the inpatient rehabilitation facilit y, how he will benefit from physical and occupational therapy. He will have 24 hours a day, 7 days a week skilled rehabilitation and residential for his medical condition. He will have daily physi santi evaluation and management for integrating his medical conditions and his rehabilitation. He ashu l have rn social services evaluation and management for discharge planning, home equipment, and to have a followup set along with continued therapy. If need be, the Infectious Disease Service and Hospital ist Service will be consulted. Barriers To Discharge: Currently, he is on hemodialysis on Wednesday, Wednesday, Wednesday. The renal doc s are involved. He does have the potential risk of additional areas of arterial occlusion that may l ead to gangrene and infection and of course, he is on multiple anticoagulation treatments as a result of that. Given that he is at high risk of falling and bleeding, so fall precautions to be adhered t o at all times and may have to be in a facility where he is more carefully monitored. However, the p deric is for him to go home at this point. Length Of Stay: About 14 days. Disposition: Home with family. Prognosis: Fair. Rehab Specific Goals: 1.Become independent with upper and lower body dressing and donning and doffing footwear. 2.Independently transfer from bed to chair to shower and perform toileting and showering. 3.Independently ambulate 250 feet with a rolling walker. 4.Independently propel a wheelchair 250 feet. 5.Independently go up and down 10 steps with right handrail. 6.Independently perform cognitive functioning. The above goals were reviewed with Mr. Fuentes and he is in agreement. By signing this document, I acknowledge I personally performed a full physical examination on Mr. Barbara cotto no later than 24 hours after his admission to the inpatient rehabilitation facility and determined that he is able to tolerate the above course of treatment at an intensive level for reasonable period of time. A detailed individualized plan of care for him will be completed by hospital day 4 based o n the preadmission screen, history and physical, and therapy evaluations. SIA Voice ID: [id number]
[2024-04-08] MEDS: MAGNESIUM OXIDE 400 MG TAB PO SCH (07:09)
--- NOTE | 2024-04-08 12:47 | PN ---
Date of Progress Note: 04/08/2024 Subjective: The patient was admitted to the rehab with amputated finger and a wound on the foot. The patient had calciphylaxis. Physical Examination: Vital Signs: Blood pressure 176/79, pulse of 70, afebrile. Chest: Clear to auscultation. Heart: S1, S2 regular. Abdomen: Soft, nontender. Extremities: No edema. Dressing on the left hand and left leg. Laboratory Data: Still pending. Culture still pending. Current Medications: The patient is on include aspirin, minocycline, midodrine, Epogen, isosorbide, metoprolol, Renvela. Assessment And Plan: 1. End-stage renal disease. Normal volume. Continue dialysis on a daily basis secondary to the calciphylaxis. 2. Calciphylaxis. Continue Renvela and we will continue daily dialysis. We will continue sodium thiosulfate for the calciphylaxis. Followup phosphorus. 3. Deconditioning. Continue PT/OT. Time spent examining the patient [id number] reviewing the data and clapper and the radiology placing order discussing the case with the patient discussing the case with the medical director/head team physician including hospitalist and nursing staff more than 55 minutes ALEXANDRA Voice ID: [id number] Report ID: [id number] KENDRICK
[2024-04-09 09:34] LABS: Absolute Lymphocytes (CBC) 1.1 K/uL (0.7-4.9); Absolute Monocytes 0.3 K/uL (0.1-1.3); Absolute Neutrophil 3.8 K/uL (1.8-8.0); Basophils % 0.3 % (0-1.3); Hematocrit 30.9 % (39.6-49.0); Lymphocytes % 20.5 % (15.3-44.8); MCH 34.4 pg (27.0-35.0); MCHC 32.5 g/dL (32.0-36.0); MCV 105.7 fL (80-100); MPV 9.3 fL (7.6-11.3); Neutrophils % 73.2 % (41.7-73.7); Platelets 117 thou/uL (152-406); RBC Red Blood Cell Count 2.92 M/uL (4.33-5.43); Red Cell Distribution Width 17.4 % (12.1-15.2)
[2024-04-09 10:01] LABS: Anion Gap 20.7 mEq/L (5.0-15.0); Magnesium 2.2 mg/dL (1.6-2.4); Phosphorus 3.6 mg/dL (2.5-4.9); Potassium 4.7 mEq/L (3.5-5.1); Prealbumin 18.1 mg/dL (20-40)
[2024-04-09 10:11] LABS: White Blood Cell Scan OK (OK)
[2024-04-09 10:12] LABS: Blood Morphology Comment NOT SEEN (NOT SEEN); Platelet Estimate DECR
[2024-04-09] MEDS: EPOETIN 4,000 UNIT/ML VIAL IV SCH (11:00)
[2024-04-09] MEDS: SODIUM THIOSULFATE IV SCH (11:15)
[2024-04-09] MEDS: HOME MED 1 EA UNK (Ozempic 0.5 MG) SQ SCH (13:06)
--- NOTE | 2024-04-09 13:33 | PN ---
Date of Progress Note: 04/09/2024 Subjective: The patient was admitted to the hospital for rehab. Patient had finger amputation and debridement on his feet. Patient has calciphylaxis. Patient was started on daily dialysis. Objective: Vital Signs: Blood pressure 145/72, pulse of 73. Chest: Clear to auscultation. Heart: S1, S2. Regular. Abdomen: Soft, nontender. Extremities: Dressing on the hand and leg. Laboratory Data: Hemoglobin 10, sodium 138, potassium 4.7, bicarb 19, BUN 41, creatinine 7.8, calcium 9.5, phosphorus 3.7. PTH 220. Current Medications: The patient on include Epogen, midodrine, minocycline, Brilinta, atorvastatin, metoprolol 25, gabapentin, Renvela 800 with each meal, Nepro, sodium thiosulfate. Assessment And Plan: 1. End-stage renal disease. We will continue dialysis 5 times a week. We will continue sodium thiosulfate. 2. Hypertension, controlled, optimal. 3. Anemia of chronic kidney disease. Continue CELI. 4. Secondary hyperparathyroidism with calciphylaxis. Continue Renvela. Continue sodium thiosulfate 25 with each dialysis. 5. Diabetes, as by Primary. 6. Leg infection, wound infection, status post debridement. Follow up with Wound Care. 7. Deconditioning. Continue PT, OT. Time spent examining the patient [id number] reviewing the data and clapper and the radiology placing order discussing the case with the patient discussing the case with the steamer gum candy including hospitalist and nursing staff more than 55 minutes ALEXANDRA Voice ID: [id number] Report ID: [id number] [facility] CENTERLauren
[2024-04-10 05:08] LABS: Hepatitis B Core Ab, Total Nonreactive (Nonreactive); Hepatitis B Surface Ab - Quant 34.56 mIU/mL (<8.0); Hepatitis B surface AG Interp. Nonreactive (Nonreactive)
[2024-04-10 05:09] LABS: HBsAG Nonreactive Report Report
[2024-04-10] MEDS ORDERED: NA CHLORIDE 0.9% 50 ML IV PRN (17:28)
--- NOTE | 2024-04-10 18:42 | PN ---
Date of Progress Note: 04/10/2024 Chief Complaint: End-stage renal disease, nonhealing lower extremity wound with infection. Subjective: The patient is undergoing debridement and wound care. 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 Review of Systems: Denies fever, chills, chest pain, palpitation. Objective: Lungs: Clear to auscultation bilaterally. Heart: S1, S2. Abdomen: Soft. Extremities: Dressing in place. Impression And Plan: 1.End-stage renal disease. The patient is to continue dialysis 5 times a week. The patient will co ntinue sodium thiosulfate. PTH is 220, phosphorus 3.7, calcium 9.5. 2.Patient has hypertension. Blood pressure is controlled with current medication. Patient is on be ta-andria, metoprolol. 3.Anemia of chronic disease. Monitor hemoglobin level. Currently, hemoglobin level is 10, satisfac tory. 4.Secondary hyperparathyroidism with calciphylaxis. Continue Renvela for hyperphosphatemia control and currently dose is well adjusted and phosphorus is optimal. 5.Diabetes mellitus per Primary team. 6.Calciphylaxis. Leg infection wound, nonhealing, status post debridement. Continue wound care per Primary team. EB/MODL Voice ID: [id number] Report ID: [id number]
--- NOTE | 2024-04-11 01:27 | PN ---
Date of Progress Note: 04/10/2024 Time Of Service: 1:25 p.m. Subjective: Mr. Fuentes is sitting in a chair beside bed. He had a good lunch. He is very happy with the meat that he had to eat and he said he has been full and again very happy at all of the therapy. He says he is very grateful to be in the unit and would like to stay as long as possible. Objective: No fevers, chills, nausea, vomiting. Mild pain in the left leg, where there is a gangren e and it has been treated prior to him coming in. He has also been followed by the Renal Service, Dr Bill Savage, and is very pleased. Objective: Vital Signs: Blood pressure 146/67, pulse 66, respiratory rate 16, temperature 97.9, O2 saturation 97%. GENERAL: Mr. Fuentes is sitting in a chair, finishing his lunch. HEENT: He is normocephalic, atraumatic. Sclerae anicteric. Oropharynx pink, moist. Neck: Supple. Chest: Clear. Does have a good bandaging in place on the left leg . Laboratory Studies: White blood cell count 5.2, hemoglobin 10.0, platelets 117. Sodium 138, potassi um 4.7, chloride 103. Carbon dioxide 19, BUN 41, creatinine is 7.84. The patient is on hemodialysis . Parathyroid hormone elevated to 220.3, prealbumin 18.1, albumin 2.0, magnesium 2.2, phosphorus 3.6 , calcium 9.5. Note, hepatitis B surface antibody is reactive. Otherwise, his panel is negative. Current Medications: Tylenol 500 mg every 4 hours as needed, Artie 5/325 every 6 hours as needed, as pirin 81 mg daily, Lipitor 40 mg at bedtime, Santyl apply topically to the left leg wound daily, dulo xetine 20 mg daily, Medihoney apply topically to leg wound daily, Nepro shake 237 mL twice daily, Ret acrit 4000 units every hemodialysis, gabapentin 100 mg twice daily, heparin 5000 units every hemodial ysis, Imdur 30 mg daily, magnesium oxide 400 mg daily, melatonin 3 mg at bedtime, Toprol-XL 25 mg nasreen ly, midodrine 5 mg 3 times daily, minocycline 50 mg twice daily, Nitrostat 0.4 mg sublingually daily as needed, Trental extended release 400 mg daily, vitamin K 10 mg subcutaneously Wednesday, Wednesday, riday, Senna S 8.6 mg daily, Renvela 800 mg 3 times daily, Brilinta 90 mg twice daily. Progress Made With Physical, Occupational Therapy: In physical therapy today, ambulated 500 feet twi ce, 250 feet twice, 175 feet once, and 125 feet with contact guard assistance. Emphasis placed on us ing a platform rolling walker with upright posture. With occupational therapy, independent with uppe r body dressing, supervision with bathing and long-handled sponge used. Maximal assist with lower ricky dy dressing and donning and doffing footwear. Mr. Fuentes making great progress with his recovery with physical and occupational therapy. Wound is do ing well with Santyl and Medisarahney applied. Assessment: Mr. Fuentes is a 58-year-old patient in rehabilitation unit with gangrene in the left leg. He is followed by the Renal Service for his end-stage renal disease, on hemodialysis, has dressing c hanges per protocol and is doing very well. He has comorbid hypertension, dyslipidemia, and the sign ificant neuropathic pain with muscle spasms. Has vitamin D replacement on board Plan: 1.Will continue physical, occupational therapy 3 hours a day, 5 of 7 days. 2.We will continue hemodialysis Wednesday, Wednesday, Wednesday per protocol. We will continue with his l ist of medications for comorbid conditions as noted including for hypertension, dyslipidemia, orthost atic hypotension and decreasing risk of clot formation. KERRI/TENNILLE Voice ID: [id number] Report ID: [id number]
--- NOTE | 2024-04-11 21:50 | PN ---
Date of Progress Note: 04/11/2024 Time Of Service: 1:20 p.m. Subjective: Mr. Fuentes is resting comfortably in his room. He denies any new complaints. He is very happy with his food, all the work that is being done, and progress made. Objective: No fevers, chills, nausea, vomiting. No significant issues such as myalgias, arthralgias , rash, or other complaints. Physical Examination: Vital Signs: Blood pressure 145/67, pulse 84, respiratory rate 18, temperature 97.2, oxygen saturati on 97%. General: Mr. Fuentes is resting comfortably in a chair. Bandages are in place in the left leg, where thor kilgore has a gangrene and he is being treated for, otherwise. Chest: Clear. Heart: Regular. Extremities: No edema, cyanosis, or clubbing. Laboratory Studies: No new laboratory studies. X-ray/imaging: No new x-rays or imaging. Medications: Have been reviewed and remained unchanged. Now, he is followed by the Renal Service as well. Progress Made With Physical And Occupational Therapy: Today, with physical therapy, wheelchair mobil ization done 250 feet, another 170 feet. Gait training 250 feet with contact guard assistance. Comp leted bed mobility with standby assistance. With occupational therapy, practiced threading on thread ing, bilateral lower extremity with the [employer], to help practice lower body dressing a nd donning and doffing of his socks. He was independent with eating. Mr. Fuentes is making excellent progress with his physical and occupational therapy. He is very happy w ith his progress. He will be ready for discharge by the weekend. Assessment And Plan: Mr. Fuentes is a 58-year-old patient admitted to rehabilitation unit with gangrene of left leg. He has end-stage renal disease, on hemodialysis, hypertension, dyslipidemia, neuropath ic pain, muscle spasms. Plan: 1.Continue with physical and occupational therapy 3 hours a day, 5 of 7 days. 2.Continue hemodialysis per protocol followed by the Renal Service. Also continue with aggressive m anagement of hypertension, dyslipidemia, and anticoagulation for DVT risk reduction. His pressor sup port is with midodrine 5 mg 3 times daily. He has Procrit for his anemia related to chronic renal di sease and Cymbalta for neuropathic pain and depression. Aspirin for stroke risk reduction. [place] fo r pain relief. Santyl apply to the wound in the left leg and dressing changes daily. KERRI/TENNILLE Voice ID: [id number] Report ID: [id number]
[2024-04-12] MEDS: ONDANSETRON 4 MG (ODT) TAB PO PRN (11:53)
--- NOTE | 2024-04-12 12:33 | PN ---
Date of Progress Note: 04/12/2024 Subjective: The patient was admitted to the hospital after amputation for rehabilitation with wound on the leg. The patient had calciphylaxis. The patient has been dialyzed 5 times a week with sodium thiosulfate. Physical Examination: Vital Signs: Blood pressure 142/65, pulse of 70. Chest: Clear to auscultation. Heart: S1, S2 regular. Abdomen: Soft. Nontender. Extremities: Dressing on the hand and on the leg and middle finger amputation. Laboratory Data: Hemoglobin 10. Sodium 138, potassium 4.7, bicarb 19, BUN 41, creatinine 7.4, calci um 9.5, phosphorus 3.6. Current Medications: The patient is on include sodium thiosulfate, midodrine, minocycline, heparin, Epogen, atorvastatin, isosorbide, nitroglycerin, gabapentin, Renvela 1 tablet with each meal. Assessment And Plan: 1.End-stage renal disease. We will continue the patient on dialysis 5 times a week. We will contin ue to utilize sodium thiosulfate. 2.Hypertension, controlled, optimal. Continue current treatment. 3.Secondary hyperparathyroidism with calciphylaxis. Continue sodium thiosulfate. Continue Renvela. 4.Wound infected with calciphylaxis as above. We will continue wound care. 5.Deconditioning. Continue PT/OT. MAE/TENNILLE Voice ID: [id number] Report ID: [id number]
[2024-04-12] MEDS: PHYTONADIONE IVPB SCH (17:00)
[2024-04-12] MEDS: NA CHLORIDE 0.9% IVPB SCH (17:00)
[2024-04-13] MEDS: METOPROLOL XL 25 MG TAB PO SCH (05:32)
[2024-04-13 14:50] VITALS: BMI 33.1
--- NOTE | 2024-04-13 16:21 | RAD REPORT ---
EXAM DESCRIPTION: RAD - Abdomen 1 View (KUB) - 04/13/2024 3:53 pm CLINICAL HISTORY: Abdomen pain FINDINGS: The bowel gas pattern is unremarkable. Moderate amount of stool present throughout the colon Left renal calculi
[2024-04-13] MEDS ORDERED: BISACODYL E.C. 5 MG TAB PO PRN (17:21)
[2024-04-13] MEDS ORDERED: MAGNESIUM HYDROXIDE 8% 30 ML PO PRN (17:21)
--- NOTE | 2024-04-13 22:44 | PN ---
Date of Progress Note: 04/13/2024 Time Of Service: 1:20 p.m. Subjective: Mr. Fuentes is in between therapy sessions. He is very happy with his therapy. He denies any issues such as pain in the left leg, where there is gangrene that is being treated with dressing changes on daily basis. He is mobilizing very well. He is followed by the renal service, and has [facility] for dialysis per Renal Service. Objective: He denies any fevers, chills, nausea, vomiting. No significant myalgias or arthralgias. No rash. No psychiatric complaints. Physical Examination: Vital Signs: Blood pressure 126/61, pulse 73, respiratory rate 16, temperature 97.2, oxygen saturati on 97%. General: Mr. Fuentes again is in chair after therapy is completed. He is somewhat tired because he fin ished all his therapy sessions in the morning. HEENT: He is otherwise normocephalic, atraumatic. Sclerae anicteric. Oropharynx pink and moist. Neck: Supple. Extremities: The left lower extremity is well bandaged at the leg, where he has gangrene that is evan ng treated. Laboratory Studies: White blood cell count 5.2, hemoglobin 10, platelets 117. Sodium 138, potassium 4.7, chloride 103, BUN 41, creatinine 7.8. He had a KUB done as there were some issues regarding ricky wel movements and abdominal pain. His study showed unremarkable bowel gas pattern and a moderate kade unt of stool present throughout the colon. There was a left renal calculi identified. Medications: Medications have been reviewed. He is on Dulcolax now per rectum for his constipation and retained stool. Milk of magnesia also put on board. He does have Zofran scheduled. The nurses n oted some retching, but not any form of vomiting, but that did actually help and he has it scheduled for the morning and will also have available as needed. Progress Made With Physical And Occupational Therapy: Today, with physical therapy, he ambulated 250 feet twice with supervision to modified independence. He was able to go up and down 5 steps, anothe r 10 steps with modified independence, maintaining nonweightbearing of the left hand. Mobilized whee lchair 500 feet independently. Completed car transfers, simulated, independently. Stand-pivot trans azam with modified independence. With occupational therapy, independent with bathing, upper and lower body dressing, donning/doffing footwear, all activities of daily living, completed independently. Mr. Fuentes is a 58-year-old patient. He did have some abdominal pain. The KUB showed retained stool. There is nonweightbearing to the right upper extremity. Left lower extremity is bandaged, where he has gangrene that is being treated. He is followed by the renal service and has end-stage renal dise ase. His creatinine is 7.84 and BUN 41. Dialysis again will be done tomorrow. Assessment: Mr. Fuentes is a 58-year-old patient admitted to the inpatient rehabilitation unit with tara grene on the left leg. He has a nonweightbearing status in the right upper extremity, where he had s urgery. He has end-stage renal disease, on hemodialysis. He has decreased physical functioning, dec reased mobility, hypertension, dyslipidemia, neuropathic pain, and muscle spasms. Plan: 1.Continue with physical and occupational therapy 3 hours a day, 5 of 7 days. 2.Continue with hemodialysis per protocol. 3.Continue with addressing his hypertension, dyslipidemia, and stroke risk and DVT risk reduction as indicated. Does have pressure support with midodrine, Procrit for anemia, Cymbalta for the neuropat hic pain, Santyl apply to the left leg and dressing changes done on a daily basis. Comorbidities Impacting Rehabilitation: He is nonweightbearing in the right arm and has left leg tara grene, making it difficult for him to mobilize, but he is doing excellent as techniques are being fol lowed properly and he is transferring in and out of a chair, simulated transfer into a car and out, m obilizing, going up and down steps and doing very well, wheelchair in addition to the walker and will be discharged in the morning to contin ue therapy via Home Health. LB/MODL Voice ID: [id number] Report ID: [id number]
[2024-04-14 06:41] VITALS: BP 139/61; TEMP 97.4
[2024-04-14] MEDS: ONDANSETRON 4 MG/2 ML VIAL IV SCH (08:00)
[2024-04-14 10:10] LABS: ALT/SGPT 21 U/L (16-61); AST/SGOT 18 U/L (15-37); Albumin/Globulin Ratio 0.6 (1.1-1.8); Alkaline Phosphatase 120 U/L (45-117); Bilirubin Total 0.3 mg/dL (0.2-1.0); Globulin 3.4 g/dL (2.3-3.5); Protein, Total 5.4 g/dL (6.4-8.2)
[2024-04-14 10:12] LABS: Bilirubin Direct < 0.2 mg/dL (0-0.2); Bilirubin Indirect, Calculated 0.1 mg/dL (0.2-0.8)
== END 2024-04-14 13:15 | disposition home health service (06) | DRG 299 ==
LOC: 5TH 14:20
PROVIDERS: ADMIT Psychiatry & Neurology Neurology with Special Qualifications in Child Neurology; ATTEND Psychiatry & Neurology Neurology with Special Qualifications in Child Neurology
PROC: 5A1D70Z Performance of Urinary Filtration, Intermittent, Less than 6 Hours Per Day (ICD-10-PCS; principal; 2024-04-09)
PROC: 5A1D70Z Performance of Urinary Filtration, Intermittent, Less than 6 Hours Per Day (ICD-10-PCS; 2024-04-10)
PROC: 5A1D70Z Performance of Urinary Filtration, Intermittent, Less than 6 Hours Per Day (ICD-10-PCS; 2024-04-14)
DX: E11.52 Type 2 diabetes mellitus with diabetic peripheral angiopathy with gangrene (principal); N18.6 End stage renal disease; I12.0 Hypertensive chronic kidney disease with stage 5 chronic kidney disease or end stage renal disease; N25.81 Secondary hyperparathyroidism of renal origin; I96 Gangrene, not elsewhere classified; R53.81 Other malaise; E11.22 Type 2 diabetes mellitus with diabetic chronic kidney disease; I25.10 Atherosclerotic heart disease of native coronary artery without angina pectoris; E66.9 Obesity, unspecified; D64.9 Anemia, unspecified; E87.5 Hyperkalemia; K59.00 Constipation, unspecified; D63.8 Anemia in other chronic diseases classified elsewhere; E78.5 Hyperlipidemia, unspecified; M62.838 Other muscle spasm; F32.A Depression, unspecified; I25.2 Old myocardial infarction; Z89.022 Acquired absence of left finger(s); Z99.2 Dependence on renal dialysis; Z68.33 Body mass index [BMI] 33.0-33.9, adult
CPT/HCPCS: 36415; 74018; 80048; 80076; 82040; 83735; 83970; 84100; 84134; 85025; 86704; 86706; 87340; 90935; 97110; 97116; 97163; 97165; 97530; 97542; J1644; J3430; J3590; Q0162; Q5105

== ENCOUNTER 2024-06-15 09:45 | Inpatient (IN) | payer OTHER ==
[2024-06-15 15:23] VITALS: BMI 32.5
[2024-06-15] MEDS ORDERED: HYDROCODONE/APAP 5/325 MG TAB PO PRN (16:44)
[2024-06-15] MEDS ORDERED: methocarbamoL 500 MG TAB PO PRN ×2 (16:45→19:30)
[2024-06-15] MEDS ORDERED: NITROGLYCERIN 0.4 MG/TAB SL PRN (16:51)
[2024-06-15] MEDS: TICAGRELOR 90 MG TABLET PO SCH (19:32)
[2024-06-15] MEDS: GABAPENTIN 100 MG CAP PO SCH (19:32)
[2024-06-15] MEDS: HYDROCODONE/APAP 5/325 MG TAB PO PRN (19:32)
[2024-06-15] MEDS: ATORVASTATIN 20 MG TAB PO SCH (19:33)
[2024-06-15] MEDS ORDERED: methocarbamoL 500 MG TAB PO SCH (21:00)
[2024-06-16 06:01] LABS: Absolute Lymphocytes (CBC) 0.8 K/uL (0.7-4.9); Absolute Monocytes 0.4 K/uL (0.1-1.3); Absolute Neutrophil 3.3 K/uL (1.8-8.0); Basophils % 0.2 % (0-1.3); Eosinophils % 0.1 % (0-4.4); Hematocrit 25.4 % (39.6-49.0); Hemoglobin 8.3 g/dL (13.6-17.9); Lymphocytes % 18.4 % (15.3-44.8); MCH 31.9 pg (27.0-35.0); MCHC 32.8 g/dL (32.0-36.0); MCV 97.2 fL (80-100); MPV 9.3 fL (7.6-11.3); Monocytes % 8.3 % (3.3-12.3); Nucleated Red Blood Cells % 0.1 % (0-0); Platelets 73 thou/uL (152-406); RBC Red Blood Cell Count 2.61 M/uL (4.33-5.43); Red Cell Distribution Width 20.1 % (12.1-15.2)
[2024-06-16] MEDS ORDERED: MELATONIN 3 MG TABLET PO PRN (06:45)
[2024-06-16] MEDS ORDERED: DOCUSATE NA/SENNA CONC 1 TAB PO PRN (06:45)
[2024-06-16] MEDS: SEVELAMER CARBONATE 800 MG TABLET PO SCH (07:54)
[2024-06-16] MEDS: FERROUS SULFATE 325 MG TAB PO SCH (07:55)
[2024-06-16] MEDS: ASPIRIN EC 81 MG TAB PO SCH (07:55)
[2024-06-16 08:49] LABS: Albumin 1.7 g/dL (3.4-5.0); Anion Gap 9.9 mEq/L (5.0-15.0); Magnesium 1.7 mg/dL (1.6-2.4); Potassium 3.9 mEq/L (3.5-5.1); Prealbumin 16.1 mg/dL (20-40)
[2024-06-16 11:43] LABS: Blood Morphology Comment NOT SEEN (NOT SEEN); Platelet Estimate DECR; White Blood Cell Scan OK (OK)
--- NOTE | 2024-06-16 13:42 | P.RH.PN ---
Estimated Length of Stay: 14 Expected Discharge Date: 06/30/24 Discharge Disposition Plan: Home Family Support: Yes [facility] Goal: Mobility, Transfers, Self Care Vital Signs: Last Vital Signs Temp 98.1 F 06/16/24 07:18 Pulse 66 06/16/24 11:55 Resp 16 06/16/24 07:18 BP 120/65 06/16/24 11:55 Pulse Ox 100 06/16/24 07:18 Laboratory: Laboratory Last Values WBC 4.50 thou/uL (4.3-10.9) 06/16/24 05:30 RBC 2.61 M/uL (4.33-5.43) L 06/16/24 05:30 Hgb 8.3 g/dL (13.6-17.9) L 06/16/24 05:30 Hct 25.4 % (39.6-49.0) L 06/16/24 05:30 MCV 97.2 fL (80-100) 06/16/24 05:30 MCH 31.9 pg (27.0-35.0) 06/16/24 05:30 MCHC 32.8 g/dL (32.0-36.0) 06/16/24 05:30 RDW 20.1 % (12.1-15.2) H 06/16/24 05:30 Plt Count 73 thou/uL (152-406) L 06/16/24 05:30 MPV 9.3 fL (7.6-11.3) 06/16/24 05:30 Neutrophils % 73.0 % (41.7-73.7) 06/16/24 05:30 Lymphocytes % 18.4 % (15.3-44.8) 06/16/24 05:30 Monocytes % 8.3 % (3.3-12.3) 06/16/24 05:30 Eosinophils % 0.1 % (0-4.4) 06/16/24 05:30 Basophils % 0.2 % (0-1.3) 06/16/24 05:30 Absolute Neutrophils 3.3 K/uL (1.8-8.0) 06/16/24 05:30 Absolute Lymphocytes 0.8 K/uL (0.7-4.9) 06/16/24 05:30 Absolute Monocytes 0.4 K/uL (0.1-1.3) 06/16/24 05:30 Absolute Eosinophils 0.0 K/uL (0-0.5) 06/16/24 05:30 Absolute Basophils 0.0 K/uL (0-0.5) 06/16/24 05:30 Platelet Estimate Decr 06/16/24 05:30 Morphology Comment Not seen (NOT SEEN) 06/16/24 05:30 Sodium 140 mEq/L (136-145) 06/16/24 05:30 Potassium 3.9 mEq/L (3.5-5.1) 06/16/24 05:30 Chloride 109 mEq/L (98-107) H 06/16/24 05:30 Carbon Dioxide 25 mEq/L (21-32) 06/16/24 05:30 Anion Gap 9.9 mEq/L (5.0-15.0) 06/16/24 05:30 BUN 26 mg/dL (7-18) H 06/16/24 05:30 Creatinine 4.78 mg/dL (0.70-1.30) H 06/16/24 05:30 Est GFR (CKD-EPI) 13 ml/min (=/>90) L 06/16/24 05:30 Glucose 132 mg/dL (74-106) H 06/16/24 05:30 Hemoglobin A1c 4.9 % (4.2-6.3) 06/16/24 06:48 Calcium 8.3 mg/dL (8.5-10.1) L 06/16/24 05:30 Magnesium 1.7 mg/dL (1.6-2.4) 06/16/24 05:30 Albumin 1.7 g/dL (3.4-5.0) L 06/16/24 05:30 Prealbumin 16.1 mg/dL (20-40) L 06/16/24 05:30 Smear Scan Ok (OK) 06/16/24 05:30 Weight: 178 lb 12.8 oz Wound Present: Yes Physician Update: Labs reviewed and show elevated diabetes territory manager of 4.78. Doing well with PT. Walked in the parallel bars. Min assist bed mobility. WC 55' with mod assist. Refusing shower. Summary: Patient's care plan and oysterman goals have been reviewed and revised as necessary. Please see the Rehabilitation Signature page for all necessary signatures.
[2024-06-16] MEDS: MIDODRINE HCL 5 MG TABLET PO PRN (17:16)
[2024-06-16 19:27] LABS: Hepatitis B surface AG Interp. Nonreactive (Nonreactive)
[2024-06-16 19:28] LABS: HBsAG Nonreactive Report Report
[2024-06-16] MEDS: AMINO ACIDS/PROTEIN HYDROLYS 30 ML LIQUID.PKT PO SCH (20:00)
[2024-06-16] MEDS: SODIUM THIOSULFATE IV SCH (20:00)
--- NOTE | 2024-06-16 21:30 | CON ---
Date of Consultation: 06/16/2024 Chief Complaint: Deconditioning, generalized weakness, mobility problems. History Of Present Illness: The patient has end-stage renal disease. Nephrology consultation is req uested for dialysis. Patient has been treated with sodium thiosulfate for calciphylaxis and he requi res extra dialysis session for metabolic clearance and volume control. He has multiple medical probl ems including history of end-stage renal disease due to diabetes mellitus, hypertension, peripheral v ascular disease. He is admitted for deconditioning. Review of Systems: Constitutional: Denies fever, chills. Eyes: Denies vision changes. Ears, Nose, Mouth, and Throat: Denies sore throat, earache. Respiratory: Denies wheezing, cough, hemoptysis. Cardiovascular: Denies syncope. GI: Denies nausea, vomiting. : Denies dysuria, hematuria. All other systems reviewed and all are negative. Past Medical History: Diabetes mellitus, obesity, coronary artery disease, hemodialysis for end-stag e renal disease, peripheral vascular disease, hyperparathyroidism, myocardial infarction, history of left middle finger amputation for gangrene. Past Surgical History: Arteriogram of the lower extremity, amputation of the left middle finger of t he middle phalanx and wound debridement and revision of the left middle finger amputation and debride ment. Social History: Denies tobacco, alcohol, or illicit drugs. Family History: Hypertension. Physical Examination: General: Patient is awake, alert, follows commands. Eyes: Anicteric sclerae. EOMI. Ears, Nose, Mouth, and Throat: Oral mucosa moist. No pallor. Neck: Supple. No bruits. Lungs: Clear to auscultation bilaterally. Heart: S1, S2. Abdomen: Soft, benign. Extremities: Slight edema. Impression And Plan: 1.End-stage renal disease. Patient will have dialysis today with ultrafiltration. 2.Calciphylaxis. Continue sodium thiosulfate with dialysis. 3.Anemia of chronic kidney disease. Monitor hemoglobin level. 4.Renal osteodystrophy. Continue binders. Monitor phosphorus level. 5.Deconditioning. Patient is undergoing rehab. EB/MODL Voice ID: [id number] Report ID: [id number]
[2024-06-16] MEDS: NEPRO SHAKE 237 ML CAN PO SCH (21:57)
--- NOTE | 2024-06-17 01:57 | HP ---
Date of Admission: 06/15/2024 Time Of Service: 1 p.m. Chief Complaint: "I am weak. I need to get stronger." History Of Present Illness: Mr. Fuentes is a 58-year-old right-handed patient with end-stage r enal disease, on hemodialysis 5 days weekly due to calciphylaxis in addition to heart disease, hypert ension, dyslipidemia, coronary artery disease, diabetes mellitus, myocardial infarction, who presente d to [facility] with 2 days of progressive chest pain that had followed dialysis. The dialysis ac tually occurred on Wednesday. Wharton like it was severe pain, perhaps a heart attack. Prior to that, he was having difficulty performing his activities of daily living, transferring, and moving for abou t 2 weeks. At [facility], he received nitroglycerin and morphine for his cardiac issue and pain relief. C ardiac enzymes initially were negative, and EKG showed no initial changes. However, the troponins ev entually elevated on 06/09. He was evaluated by Cardiology and transferred to [facility] for hig her level of care. His troponins continued to trend up, requiring Cardiology consult and placement o n heparin drip for ziq-DE-uxyiuaf myocardial infarction. EKG revealed a bifascicular block. Transth oracic echocardiogram showed preserved left ventricular ejection fraction with gzpx-qz-ertwoams aorti c stenosis. Due to severe anemia, he required 1 unit of packed red blood cells and had left heart ca theterization and angiogram on 06/13. During his hospitalization, course complicated by orthostatic hypotension, resulted in lightheadedness when standing, requiring him to have support in terms of low er extremities and the abdominal with MILTON hose and binders, and pressure support. Due to his hospita l stay, he has developed more proximal than distal weakness and requires moderate assistance for sit to stand, minimum assistance to ambulate 35 feet with rolling walker, minimum assistance to perform a ll activities of daily living, moderate assistance for lower body dressing. As a result, he is funct ioning well below his baseline level and as he is medically cleared, he is now ready for aggressive i npatient rehabilitation to help him return to his prior level of functioning and avoid re-hospitaliza tion. In addition, he will continue to have the end-stage renal disease hemodialysis related treatme nt while in hospital. He does have metabolic acidosis and of course the anemia that he had to receiv e a unit of blood. Past Medical History: As noted above. Surgical History: Peripheral arterial disease with angiograms done on 03/03/2024 and his lower extre mity access was placed on 03/03/2024. There was amputation of the left middle finger and it was the middle phalanx. He had wound debridement on 03/28/2024, and there was a revised amputation of the le ft middle finger and debridement of the lower extremities on 06/04/2024. There was also debridement of the left little finger. In addition, there was a left heart catheterization and there was an ravin ogram of the COHEN artery and superior vena cava accessed. He had left main stent in the heart, showe d well apposed and expanded stent. In terms of additional studies, an echocardiogram on 05/31 showed ejection fraction of 50% to 55% with moderate aortic stenosis, preserved function of left ventricle. Allergies: IODINE, SHELLFISH. Current Medications: Robbins 5/325 every 4 hours as needed, aspirin 81 mg daily, Lipitor 20 mg at bedt everett, twice daily, ferrous sulfate 325 mg daily, gabapentin 200 mg twice daily, heparin 100 0 units every hemodialysis, magnesium oxide 400 mg daily, melatonin 3 mg at bedtime, Robaxin 500 mg 4 times daily as needed, midodrine 5 mg 3 times daily for pressure support, Nitrostat 0.4 mg sublingua l every 2 hours as needed, Senokot-S 2 at bedtime, Renvela 1600 mg 3 times daily with meals, sodium t hiosulfate he is receiving 25 g after each hemodialysis, Brilinta 90 mg twice daily as an antiplatele t regimen. Family History: Noncontributory. Social History: The patient does not drink alcohol or smoke cigarettes or use IV drugs. Lives in [facility]. He is a Full Code status. Review of Systems: Reports some myalgias, arthralgias, proximal weakness in the lower and upper extremities making it di fficult for him to sit to stand. Would like to be able to improve the ability to stand up. Does hav e significant swelling in the left upper extremity where there is an infiltrated IV. Would like to i mprove the swelling there and there is a little bit of weeping and swelling in the left arm, and it w ill be kept elevated and wrapped as appropriate with Ananda wrap to reduce the swelling any further. Current Level Of Functioning: Currently at supervision for eating, oral hygiene. Toilet hygiene at moderate assistance. Showering maximal assistance. Upper body dressing, moderate assistance. Lower body dressing, maximum assistance. Donning and doffing of footwear, maximum assistance. Rolling le ft-to-right, or sit to lying, and lying to sitting on the side of bed, all moderate assistance. Sit- to-stand and transfer from bed to chair to wheelchair, moderate assistance. Ambulation with a alberta g walker 35 feet moderate assistance. Physical Examination: Vital Signs: Blood pressure 120/65, pulse 66, respiratory rate 16, temperature 98.1, oxygen saturati on 100%. Weight 178 pounds, height 5 feet 2 inches, BMI 32.7. General: Mr. Fuentes is sitting in a chair beside the bed. HEENT: He is normocephalic, atraumatic. Sclerae anicteric. Oropharynx pink, moist. Musculoskeletal: The left upper extremity has moderate edema proximally and distally. Right, no sig nificant edema. Mild bruising noted in the upper extremities. In his lower extremities, he has mild edema noted at left and right. There is again some bruising. Neurological: Cranial nerves show no focal deficits. He has proximal weakness in the upper and lowe r extremities, 3/5 to 4/5 and distally 4/5. Stocking glove loss, light touch, temperature. Laboratory Studies: White blood cell count 4.5, hemoglobin 8.3, platelets 73. Sodium 140, potassium 3.9, chloride 109, carbon dioxide 25, BUN 26, creatinine 4.78, glucose 132. Hemoglobin A1c 4.9. Ca lcium 8.3, magnesium 1.7. Albumin 1.7 as well. Prealbumin 16.1. Hepatitis B surface antigen is pen ding. Rehab And Medical Assessment And Plan: Mr. Fuentes is a 58-year-old patient, admitted to the inpatient rehabilitation unit with impairment category 06, neurological condition. His impairment group code i s 03.8, neuromuscular disorders. Etiologic diagnosis: Congestive heart failure myopathy. Comorbidi ties are anemia, status post unit of blood transfused; coronary artery disease; chronic kidney diseas e with calciphylaxis; decreased mobility; decreased physical functioning; he does have hemodialysis u p to 5 days weekly; dyslipidemia; hypertension; hyperkalemia; malnutrition; metabolic acidosis, that is resolved; recent [id number] myocardial infarction; orthostatic hypotension; obstructive sleep apnea; peripheral vascular disease; and hyperphosphatemia. Plan: 1.He will have physical, occupational, and speech therapy for 3.5 hours, 5 of 7 days. 2.We will continue with hemodialysis schedule 5 days weekly for the calciphylaxis and renal insuffic iency. 3.Continue Brilinta for stroke and DVT risk reduction; the Renvela and sodium thiosulfate with dialy sis and meals managed by the renal service. Senokot-S for constipation. Nitrostat for his coronary artery disease and chest pain. Midodrine for his orthostatic hypotension and pressure support. Magn esium oxide for proper muscle functioning. He has gabapentin 200 mg twice daily for diabetic neuropa thic pain, ferrous sulfate 325 mg daily for his malnutrition. We will continue with dialysis per the renal service for the calciphylaxis 5 times weekly, aspirin 81 mg daily for stroke risk reduction, L ipitor for dyslipidemia, Robbins for the pain. 4.The patient will have the left arm elevated and wrapped to reduce the edema. We will work on impr oving the strength in the proximal lower extremity with [id number] and mobilization via a walker wi th gait belt at all times. Fall precautions to be adhered to strictly. Comorbidities That Are Impacting Rehabilitation: He has of course the calciphylaxis, requiring hemod ialysis 5 times weekly. His schedule will be worked around that so that dialysis would not interfere with his physical therapy. We will be carefully looking for any additional signs of stroke. The pa tiecarole will have good hydration given his issues of not being able to produce urine, will be balanced with orthostasis and with blood pressure medications and blood pressure support with midodrine. We w ill look for anemia worsening and may require a unit of blood, so that will be looked for. Otherwise , his comorbidities are currently stable and will be monitored on a daily basis. Rehab Specific Plan: Mr. Fuentes will have physical, occupational, and speech therapy if need be 3.5 ho urs, 5 of 7 days to improve his ability to transfer from bed to chair to a wheelchair to a toilet to perform toileting, to perform showering, to dress upper and lower body. He will work on mobilizing w ith a rolling walker at least 250 feet with modified independence and towards a wheelchair mobilizati on over 250 feet with modified independence. Go up and down 10 steps with modified independence. He if need be will work with Speech Therapy to help him make sound decisions about his safety awareness ; to decrease impulsivity; and to manage all medications, followup after his discharge, and to be abl e to continue therapy properly with either via Home Health or outpatient. Mr. Fuentes has a good understanding of the process of admission to the inpatient rehabilitation facilit y and how he will benefit from physical, occupational, and speech therapy. He will have 24 hours a d ay, 7 days a week skilled rehabilitation nursing; daily physician evaluation and management; and [facility] al Service evaluation and management for his discharge planning, home equipment, physician followup, and therapy continuation. If need be, additional help from the hospitalist service. He already had help from the renal service. The general surgery service may be consulted if need be as well. Barriers To Discharge: As noted, he is on the renal schedule with dialysis, may have some difficulty continuing dialysis if he is discharged home and does not have access to go back and receive dialysi s. In addition, because of his myopathy, his proximal weakness in the lower extremities puts him at high risk of falling. If there is falling and injury, it may prolong his hospital stay and if he is unable to safely transfer and mobilize, may have to go to assisted. However, the goal will be to be able to return home and continue therapy at home. Length Of Stay: About 14 days. Disposition: Home with family and continuing therapy via Home Health. Prognosis: Good. Rehab Specific Goals: 1.Become independent with upper and lower body dressing, donning and doffing of footwear. 2.Independently ambulate 250 feet with a rolling walker. 3.Independently mobilize the wheelchair 250 feet. 4.Independently go up and down 10 steps with bilateral handrails. 5.Independently perform cognitive functioning. The above goals were reviewed with Mr. Fuentes and he is in agreement. By signing this document, I acknowledge I personally performed a physical examination of Mr. Fuentes no later than 24 hours after his admission to the inpatient rehabilitation facility and determined that he is able to tolerate the above course of treatment at an intensive level for a reasonable period of time. A detailed individualized plan of care for him will be completed by hospital day 4 based on t he preadmission screen, history and physical, and therapy evaluations. SIA Voice ID: [id number]
[2024-06-17] MEDS: MAGNESIUM OXIDE 400 MG TAB PO SCH (08:14)
[2024-06-17] MEDS ORDERED: EPOETIN 4,000 UNIT/ML VIAL IV SCH (14:30)
--- NOTE | 2024-06-17 19:04 | PN ---
Date of Progress Note: 06/17/2024 Subjective: No overnight event. Had dialysis today. We will do another dialysis treatment today an d then on Wednesday to continue calciphylaxis. Objective: Vital Signs: Temperature 98.5, pulse rate 72, blood pressure 127/61. General: Awake and alert, not in distress. Neck: Supple. No elevated JVD. Heart: Regular rate and rhythm. Normal S1, S2. Chest: Clear to auscultation bilaterally. No rales or wheezes. Abdomen: Soft, nontender. Extremities: Does have edema with legs wrapped. Assessment And Plan: This is a 58-year-old man with past medical history of end-stage renal disease, on hemodialysis; calciphylaxis; obesity; diabetes mellitus, and nonhealing lower extremity wounds, w ho was presented for a physical and occupational therapy. 1.End-stage renal disease. The patient will have extra dialysis treatment today, then continue dial ysis on Wednesday, Wednesday, and Wednesday. Renally dose medication. 2.Calciphylaxis. The patient completed nearly 1 month of sodium thiosulfate. We will continue sodi um thiosulfate while he is hospitalized. We will send for PTH and phosphorus on Wednesday. 3.Anemia of chronic disease. Monitor hemoglobin and hematocrit. Continue Epogen. 4.Renal osteodystrophy. Continue binders. We will check PTH and phosphorus. 5.Deconditioning. Continue physical therapy and occupational therapy. Thanks for allowing me to participate in patient's care. Total time spent 55 minutes including docum entation, reviewing labs, and discussing with the patient at the bedside. NATANAEL/TENNILLE Voice ID: [id number] Report ID: [id number]
[2024-06-18] MEDS: HOME MED 1 EA UNK (Ozempic 1 MG) SQ SCH (08:00)
[2024-06-18] MEDS ORDERED: SEMAGLUTIDE 0.25 MG/0.368 ML SQ SCH (08:00)
[2024-06-18] MEDS: HOME MED 1 EA UNK (Ozempic 0.5 MG) SQ SCH (08:23)
[2024-06-19] MEDS: MEDIHONEY TOP SCH (08:19)
[2024-06-19] MEDS: MIDODRINE HCL 5 MG TABLET PO SCH (16:14)
[2024-06-19] MEDS: MANNITOL 25% 12.5 GM/50 ML VIAL IV PRN (19:00)
[2024-06-19] MEDS: EPOETIN ALFA 4000 UNIT/1 ML VIAL IV SCH (19:15)
--- NOTE | 2024-06-20 01:01 | PN ---
Date of Progress Note: 06/19/2024 Time Of Service: 1:25 a.m. Subjective: Mr. Fuentes is ambulating around the unit. He is feeling much better, although he says he still tires a bit. He did have a significant drop in his blood pressure as he did stand and ambulate blood pressure was also very elevated. Heart rate was around low 100 such as around ____ 110. Objective: He denies any ongoing fevers, chills, any myalgias or arthralgias, rash, or so. Still mills s the joint diffuse weakness from CHF myopathy as noted. Physical Examination: Vital Signs: Blood pressure is 100/46, pulse 80, respiratory rate of 16, temperature 98.2, oxygen sa turation 100%. General: Mr. Fuentes is actually resting between his sessions. He is ambulating around the unit. HEENT: He is normocephalic, atraumatic. Sclerae anicteric. Oropharynx pink and moist. Neck: Supple. Chest: Clear. Extremities: Mild edema in the lower extremities and wraps in place. Laboratory Studies: Blood sugars ranged up to 115 and note hemoglobin A1c from 06/16/2024 is 4.9. H epatitis B surface antigen nonreactive. Medications: Cleveland 5/325 every 4 hours as needed. He has amino acid supplementation 30 mL p.o. b.i. d., aspirin 81 mg daily, Lipitor 20 mg at bedtime, Nepro shake 237 mL twice daily, Procrit 8000 units with every hemodialysis, ferrous sulfate 325 mg daily, gabapentin 200 mg twice daily, heparin 1000 u nits with every hemodialysis, magnesium oxide 400 mg daily, mannitol 12.5 g for IV as needed for low blood pressure, melatonin 3 mg at bedtime, Robaxin 500 mg 4 times daily, midodrine 5 mg 3 times daily , Nitrostat 0.4 mg sublingual as needed for chest pain, Senokot-S 2 at bedtime, Renvela 1600 mg 3 ema es daily with meals, sodium thiosulfate 25 g at 100 ml after each hemodialysis, and Brilinta 90 mg tw ice daily. Consultation: He is followed by the Renal Service, has hemodialysis for their schedule. Progress Made With Physical And Occupational Therapy: Today with occupational therapy, uqtqna-wj-hnb transfers done with standby assistance, multiple xnn-nd-apbao transfers done with standby assistance and verbal cues. Ambulation; he ambulated 250 feet with a rolling walker and 100 feet twice with co ntact guard assistance. Emphasis placed on upright posturing and controlling breathing. Wheelchair mobilization was 150 feet with standby assistance. Regarding occupational therapy, the patient did d o all therapy earlier and was occupational therapy, did agree to perform floor exercises w ith upper body strength and was seated in the arm bike for 5 minutes, did 5 minutes forward and 5 min utes backwards , biceps curls, triceps press, overhead press and 20 reps done to improve hi s ADLs and safety, his ability to transfer safely. Assessment: Mr. Fuentes is in the rehabilitation unit with congestive heart failure myopathy. He is re covering well and improving his strength, endurance, coordination, balance, and distance of ambulatio n. He has comorbidities of decreased mobility, decreased physical functioning, chronic renal disease with calciphylaxis requiring hemodialysis multiple times weekly, non ST-segment myocardial infarctio n, orthostatic hypotension, obstructive sleep apnea, peripheral vascular disease, hyperphosphatemia. Plan: He will continue with physical, occupational, and speech therapy for 3.5 hours, 5 of 7 days. Continue hemodialysis for his calciphylaxis per Renal schedule. Continue DVT prophylaxis. Continue all of medications which include the midodrine for pressure support, insulin sliding scale, Lipitor f or dyslipidemia, and Cleveland for pain. LB/MODL Voice ID: [id number] Report ID: [id number]
--- NOTE | 2024-06-20 04:17 | PN ---
Date of Progress Note: 06/19/2024 Chief Complaint: End-stage renal disease. The patient is on daily dialysis for calciphylaxis and vo lume overload. Review of Systems: Denies chest pain, palpitation. Physical Examination: Lungs: Clear to auscultation bilaterally. Heart: S1, S2. Abdomen: Soft. Extremities: Dressing in place. Assessment And Plan: 1.The patient is a 58-year-old man with past medical history of end-stage renal disease, on hemodial ysis, has calciphylaxis abutted to diabetes mellitus, nonhealing lower extremity wounds. He is under going physical and occupational therapy. He is undergoing daily dialysis 5 times per week. The wen ent received dialysis today. The patient is on treatment with sodium thiosulfate for calciphylaxis. Continue to monitor PTH and phosphorus level. 2.Anemia of chronic disease. Monitor H and H. continue Epogen. 3.Renal osteodystrophy. Continue binders. Monitor phosphorus level. LILI/TENNILLE Voice ID: [id number] Report ID: [id number]
[2024-06-20 07:47] VITALS: BP 149/66; TEMP 98.2
--- NOTE | 2024-06-20 16:59 | CON ---
Date of Consultation: 06/20/2024 Diagnosis: Bilateral lower extremity necrotic infected ulcers. History Of Present Illness: This is the case of a 58-year-old patient who comes to the rehab center for rehabilitation. Has an extensive medical and cardiac history. He came with a history of calciph ylaxis with also black eschars in the back of his heels and also Achilles tendon area, but recently d eveloped into this wet callus with smell coming from it, which is starting to get infected, at the [facility] and surgical consult was obtained for the possibility of debridement. The patient has a history of heart disease. Normally a patient of [facility]. All his recent procedures have been do ne in that area. I discussed the case with the patient's family which used to be working for us. Re cently, he has been seen in [facility] for some heart disease, has been seen by the cardiac program with a transthoracic echo showing preserved left ventricular ejection fraction. Due to all this hospital st , he developed some deconditioning and that is why he was transferred to the rehabilitation center. Past Medical History: As above. Past Surgical History: Includes angiograms as early as February of this year. There have been extensive workup to revascularize lower extremities as discussed with the patient's family and also in the [facility] rt and discussing with the patient. Also previous surgeries include amputation of the left middle fi nger. Allergies: IODINE AND SHELLFISH. Medications: Reviewed. Family History: Heart disease. Social History: He does not smoke. He does not drink alcohol. Review of Systems: The lower extremity necrotic eschars are very tender. He does not allow a surgical debridement local ly. Physical Examination: Vital Signs: Reviewed. General: The patient is awake, alert. HEENT: Pupils are equal and reactive. Chest: Clear. Abdomen: Soft and depressible. Extremities: Good capillary refill. Missing a finger in the left hand. Integumentary: Bilateral heels and posterior leg near the Achilles tendon region with black eschar, starting to have some foul smell from it and also subcutaneous fluid content underneath those eschars with discharge. Laboratory Data: Blood work shows a WBC count of 4.5, hemoglobin of 8.3. Potassium 3.9, creatinine is 4.78. Assessment: A 58-year-old patient with cardiac disease, extensive workup done in [place], and also peripheral vascular disease, extensive revascularization done there too. The patient came here for deconditioning. The black eschar has now become wet, draining, foul smelling, and needs some debride ment. Since he is in rehab, I discussed the logistics of that with the primary doctors. I need to c lean that. He does not allow me to do that at bedside, it is too tender, so we are going to try to s ee if we are allowed to take him to surgery. I just need to clean those wounds because they are gett ing infected and this will deteriorate. I talked to the patient's family who used to work in our hos [employer] and she is seeing deterioration of those eschars getting bigger and she is concerned. Now we e xplained to them also there is some calciphylaxis that may be involved in this and the reason we are going for this not because he has black eschar, it is because they are getting wet and they are getti ng drainage and bacteria are underneath causing the foul smelling and it is going to cause a major pr oblem in bilateral leg area. Still he needs to continue following up with his vascular doctors in [facility]. From the surgical standpoint, we can offer excisional debridement. What kind of anesthesia he needs or safer to do will be dictated by the anesthesiologist, at least enough for us to be able to clean this wound is what I need at this moment, so he is going to be brought to the floor as the p rotocols and then may go back to rehab once this is over if it is okay with the rehab center. Wound care will be determined by what we see tomorrow, may require Santyl and may need long-term wound healing, so we offered him the service of the wound centers over the area. RAY/TENNILLE Voice ID: [id number] Report ID: [id number]
--- NOTE | 2024-06-21 23:17 | DS ---
Date of Discharge: 06/20/2024 Discharge Condition: Good. Allergies: IODINE. Diagnoses: CHF and myopathy, anemia of chronic disease, recent blood transfusion, coronary artery di sease, kidney disease with calciphylaxis, decreased mobility, decreased physical functioning, dyslipi demia, hypertension, hyperkalemia, malnutrition, metabolic acidosis, peripheral vascular disease with bilateral lower extremity necrotic infected ulcers for debridement. Medications: Aspirin 81 mg daily, atorvastatin 40 mg at bedtime, Procrit 8000 units every hemodialys is, gabapentin 200 mg twice daily, heparin 1000 units after each dialysis, [place] 5/325 every 4 hours as needed, midodrine 5 mg 3 times daily, morphine 2 mg IV every 4 hours, Nitrostat 0.4 mg every 2 jay rs as needed, sodium thiosulfate IV after each dialysis, Brilinta 90 mg twice daily. Laboratory Studies: White blood cell count 4.5, hemoglobin 8.3, hematocrit 25.4, platelets 73. Sodi um 140, potassium 3.9, chloride 109, carbon dioxide 25, BUN 26, creatinine 4.78, glucose ranged from 115 to 132, hemoglobin A1c 4.9, calcium 8.3, magnesium 1.7, albumin 1.7, prealbumin 16.1. Hepatitis B surface antigen nonreactive. X-ray/imaging: No new x-rays or imaging done. Consultations: The patient was followed by the Renal Service for his hemodialysis, and Dr. Tyson saw the patient for debridement of his bilateral lower extremity necrotic ulcers. Synopsis Of Events That Led To Admission: Mr. Fuentes is a 58-year-old, right-handed patient with end-s tage renal disease, on hemodialysis. He also has calciphylaxis, requiring hemodialysis up to 5 days weekly, coronary artery disease, hypertension, bilateral necrotic ulcer of the lower extremity, coron nemesio artery disease, diabetes, myocardial infarction, anemia, status post 2 units blood transfusion, w sarah presented to [facility] after 2 days of progressive chest pain following dialysis. He had jaquan re pain about his myocardial infarction. At [facility], he received nitroglycerin, morphine, and the cardi ac enzymes were done and they were found to be negative. EKG showed no initial changes. However, cornelius bsequently troponins became elevated by 06/09 and he was transferred to [facility]. The troponin s continue to trend up and Cardiology was consulted, placed on a heparin drip and was diagnosed with [id number] myocardial infarction. EKG at that point showed bifascicular block. Transthoracic ec hocardiogram showed preserved left ventricular fracture and [id number]-[id number] aortic stenosis. He als o subsequently had severe angina which was once again treated with nitroglycerin. He did receive a u nit of packed red blood cells after his left heart catheterization was done. Due to his hospital sta y, he developed proximal weakness in the lower and upper extremities, became significantly debilitate d, and was unable to ambulate about 35 feet with a rolling walker requiring minimum assistance. In a ddition, he required minimum to moderate assistance to perform activities of daily living including d ressing of lower extremities and managing wounds in his legs. As a result, the patient was determine d to be an appropriate candidate for inpatient rehabilitation and was therefore admitted to the [facility] rehabilitation unit where he received physical, occupational, and speech therapy along with [facility] management of his comorbid conditions. Hospital Course: During hospitalization, he did well in terms of his white blood cell count remainin g normal. Hemoglobin was low with stable at 8.3. His kidney function, creatinine of 4.7, was again managed by the Renal Service with hemodialysis. Calcium level was low at 8.3, prealbumin 16.1, given protein supplementation. He did have episodes of orthostatic hypotension and midodrine was added to help support his blood pressure from dropping. It is also felt that his volume removal during dialy sis perhaps contributing to some of the drop in blood pressure and orthostasis. He was again evaluat ed by Dr. Tyson. The wounds of the lower extremity were determined to require debridement and was therefore determined that he will be transferred to the acute care floor to receive such debridement . Progress Made With Physical And Occupational Therapy: With physical therapy, he by the time of disch arge was able to do [id number]-[id number] transfers independently, completed multiple pjy-ha-boowp transfers independently, [id number] transfers done with supervision. He was able to ambulate with a alberta g walker 250 feet, another 50 feet twice with contact guard assistance. He was able to mobilize a wh eelchair 150 feet with supervision. Regarding his occupational therapy, he was not experiencing any pain as he was doing his exercises, did 15 rehabilitation 2 sets with 2-pound dumbbells in each arms to improve his chest strength and arm strength along with elbow extension and butterfly press exercis es. He tolerated those exercises well. While hospitalized, he actually did not receive any speech t herapy. Follow up is of course with Dr. Tyson and the Renal Service and primary care physician __ Hospitalist before his discharge and he will follow up with his primary care physician after he is discharged from the hospital. He may be able to return to inpatient rehabilitation after the debridement was done once he is cleared by Dr. Tyson. KERRI/TENNILLE Voice ID: [id number] Report ID: [id number]
== END 2024-06-20 15:40 | disposition short-term general hospital (02) | DRG 91 ==
LOC: 5TH 15:18
PROVIDERS: ADMIT Psychiatry & Neurology Neurology with Special Qualifications in Child Neurology; ATTEND Psychiatry & Neurology Neurology with Special Qualifications in Child Neurology
PROC: 5A1D70Z Performance of Urinary Filtration, Intermittent, Less than 6 Hours Per Day (ICD-10-PCS; 2024-06-16)
PROC: 5A1D70Z Performance of Urinary Filtration, Intermittent, Less than 6 Hours Per Day (ICD-10-PCS; principal; 2024-06-19)
DX: G72.89 Other specified myopathies (principal); N18.6 End stage renal disease; I13.2 Hypertensive heart and chronic kidney disease with heart failure and with stage 5 chronic kidney disease, or end stage renal disease; E87.20 Acidosis, unspecified; E46 Unspecified protein-calorie malnutrition; I96 Gangrene, not elsewhere classified; L97.429 Non-pressure chronic ulcer of left heel and midfoot with unspecified severity; L97.419 Non-pressure chronic ulcer of right heel and midfoot with unspecified severity; E11.52 Type 2 diabetes mellitus with diabetic peripheral angiopathy with gangrene; E11.22 Type 2 diabetes mellitus with diabetic chronic kidney disease; I50.9 Heart failure, unspecified; E78.5 Hyperlipidemia, unspecified; I25.10 Atherosclerotic heart disease of native coronary artery without angina pectoris; D64.9 Anemia, unspecified; E87.5 Hyperkalemia; I95.1 Orthostatic hypotension; G47.33 Obstructive sleep apnea (adult) (pediatric); K59.00 Constipation, unspecified; E66.9 Obesity, unspecified; E21.3 Hyperparathyroidism, unspecified; D63.1 Anemia in chronic kidney disease; N25.0 Renal osteodystrophy; L08.9 Local infection of the skin and subcutaneous tissue, unspecified; I25.2 Old myocardial infarction; Z68.31 Body mass index [BMI] 31.0-31.9, adult; Z99.2 Dependence on renal dialysis; Z89.022 Acquired absence of left finger(s)
CPT/HCPCS: 36415; 80048; 82040; 82947; 83036; 83735; 84134; 85025; 87340; 90935; 97110; 97116; 97162; 97165; 97530; 97542; J1644; J2150; Q4081; Q5105

== ENCOUNTER 2024-06-20 15:50 | Observation (INO) | payer OTHER ==
[2024-06-20] MEDS ORDERED: MIDODRINE HCL 5 MG TABLET PO PRN (15:55)
[2024-06-20] MEDS ORDERED: NITROGLYCERIN 0.4 MG/TAB SL PRN (15:55)
--- NOTE | 2024-06-20 16:20 | P.HP ---
Patient History Date of Service: 06/20/24 Reason for admission: Foot wounds History of Present Illness: Patient was in inpatient rehab after a hospitalization at [facility] for chest pain with PCI/stent placement. During his stay in inpatient rehab he was found to have multiple wounds to his lower extremities including his heels which stage IV ulcerations and a cardiac issue present. Patient was evaluated by general surgery who recommended debridement take place, patient will be admitted to acu te care for further management/debridement Allergies iodine Allergy (Severe, Verified 06/20/24 13:03) Shortness of breath SHELLFISH Allergy (Intermediate, Uncoded 04/09/24 14:32) Hives/Rash Home Medications: Aspirin 81 mg PO DAILY 02/08/15 Atorvastatin Calcium [Lipitor] 40 mg PO BEDTIME 04/06/24 Gabapentin [Neurontin*] 200 mg PO BID 04/06/24 Hydrocodone 5/APAP 325 [[place]no 5/325*] 1 tab PO Q4H PRN 04/06/24 Midodrine HCl [Proamatine*] 5 mg PO TID PRN 04/06/24 Nitroglycerin [Nitrostat*] 0.4 mg SL UD PRN 04/06/24 Semaglutide [Ozempic] 1 mg SQ UD 04/06/24 Ticagrelor [Brilinta*] 90 mg PO BID 04/06/24 Collagenase [Santyl Ointment*] 1 appl TOP DAILY #1 tube 04/13/24 methocarbamoL [Robaxin] 500 mg PO QID 06/15/24 - Past Medical/Surgical History Diabetic: Yes -: HTN -: Hyperlipidemia -: CT X4 -: IDDM -: CHF -: ESRD -: CABG x 3 vessels -: Cardiac cath with 1 stent -: Appendectomy -: upper left arm HD graph -: Gastric Bypass -: Right foot sx -: Morbid obesity -: Cholecystectomy - Family History Mother -: Hypertension, Diabetes, Cancer, Liver disease, Other (see notes) Notes: Breast CA - Social History Alcohol use: No CD- Drugs: No Caffeine use: No Review of Systems 10-point ROS is otherwise unremarkable Musculoskeletal: Foot Pain Physical Examination - Physical Exam General: Alert, In no apparent distress, Oriented x3 HEENT: Atraumatic, PERRLA, Mucous membr. moist/pink Neck: Supple, 2+ carotid pulse no bruit, No LAD Respiratory: Clear to auscultation bilaterally, Normal air movement Cardiovascular: Regular rate/rhythm, Normal S1 S2 Gastrointestinal: Normal bowel sounds, No tenderness Musculoskeletal: No tenderness Integumentary: No rashes, Diabetic ulcer (viry heels with necrotic tissue present) Neurological: Normal speech, Normal strength at 5/5 x4 extr, Normal tone, Normal affect Assessment and Plan - Plan Assessment: Right and left heel diabetic ulcerations-Stage 4, left posterior lower leg ulceration ESRD on HD 5 times weekly CAD with recent stent/PCI CHFunknown EF Myopathy/deconditioning Diet-controlled diabetes PAD Plan: Right and left heel diabetic ulcerations-Stage 4, left posterior lower leg ulceration Evaluated by general surgery who recommends debridement N.p.o. after midnight anticipation of debridement ESRD on HD 5 times weekly Had HD today nephrology following CAD with recent stent/PCI Continue medications including aspirin, Brilinta Will hold tomorrow morning's Brilinta dose CHFunknown EF Unknown ejection fraction does not appear grossly overloaded at this time Myopathy/deconditioning Continue PT, likely to return to inpatient rehab after debridement Diet-controlled diabetes Reports A1c less than 5 Patient management PAD Continue home medications DVT PPX:Heparin subq Code status:Full Discharge Plan: Other Plan to discharge in: 24 Hours - Advance Directives Does patient have a Living Will: No Does patient have a Durable POA for Healthcare: No - Code Status/Comfort Care Code Status Assessed: Yes (Full code) Critical Care: No Time Spent Managing Pts Care (In Minutes): 57
[2024-06-20] MEDS: [UNRECOGNIZED DRUG - OTHER] IV SCH (16:55)
[2024-06-20] MEDS ORDERED: methocarbamoL 500 MG TAB PO SCH (17:00)
[2024-06-20] MEDS: EPOETIN ALFA 4000 UNIT/1 ML VIAL IV SCH (17:45)
[2024-06-20] MEDS: HYDROCODONE/APAP 5/325 MG TAB PO PRN (18:33)
[2024-06-20] MEDS: GABAPENTIN 100 MG CAP PO SCH (20:13)
[2024-06-20] MEDS: ATORVASTATIN 40 MG TAB PO SCH (20:13)
[2024-06-20] MEDS: TICAGRELOR 90 MG TABLET PO SCH (20:13)
[2024-06-20 23:37] VITALS: BMI 30.9
[2024-06-21] MEDS: MORPHINE 2 MG/ML SYR IV PRN (05:57)
[2024-06-21 07:06] LABS: Absolute Lymphocytes (CBC) 0.7 K/uL (0.7-4.9); Absolute Monocytes 0.4 K/uL (0.1-1.3); Absolute Neutrophil 4.1 K/uL (1.8-8.0); Basophils % 0.2 % (0-1.3); Hematocrit 25.7 % (39.6-49.0); Hemoglobin 8.3 g/dL (13.6-17.9); Lymphocytes % 13.6 % (15.3-44.8); MCH 31.7 pg (27.0-35.0); MCHC 32.3 g/dL (32.0-36.0); MCV 98.3 fL (80-100); Monocytes % 7.5 % (3.3-12.3); Neutrophils % 78.7 % (41.7-73.7); Nucleated Red Blood Cells % 0.1 % (0-0); Platelets 137 thou/uL (152-406); RBC Red Blood Cell Count 2.61 M/uL (4.33-5.43); Red Cell Distribution Width 20.6 % (12.1-15.2)
[2024-06-21 07:20] LABS: Anion Gap 15.2 mEq/L (5.0-15.0); Potassium 4.2 mEq/L (3.5-5.1)
[2024-06-21 08:51] LABS: Anisocytosis 1+; Blood Morphology Comment NOTED (NOT SEEN); Platelet Estimate DECR; White Blood Cell Scan OK (OK)
[2024-06-21] MEDS ORDERED: MIDAZOLAM HCL 2 MG/2 ML INJ ONE (09:36)
[2024-06-21] MEDS ORDERED: KETAMINE HCL IN 0.9 % NACL 50 MG/5 ML SYRINGE IV ONE (09:36)
[2024-06-21] MEDS ORDERED: FENTANYL CITR 100 MCG/2 ML ONE (09:36)
[2024-06-21] MEDS: NA CHLORIDE 0.9% 500 ML ONE (09:45)
[2024-06-21] MEDS ORDERED: Phenylephrine HCl 10 MG/ML 1 ML VIAL ONE (09:50)
[2024-06-21] MEDS: CEFAZOLIN SODIUM 1 GM/VIAL ONE (10:00)
[2024-06-21] MEDS: COLLAGENASE 30 GM OINTMENT TOP ONE (10:20)
--- NOTE | 2024-06-21 10:35 | P.BOP ---
Preoperative diagnosis: Necrotic infected bilateral feet and lower legs wounds Postoperative diagnosis: same Primary procedure: Excisional debridment down to subQ: 1. R lower leg 5x4cm Secondary procedure: 2. R heel 5x5cm, 3. L lower legs 6x3cm, 4 L heel 3x3cm Estimated blood loss: <10cc Specimen: necrotic tissue , culture Findings: as above Anesthesia: MAC Complications: None Drain(s): Other (santyl) Transferred to: Recovery Room Condition: Good
[2024-06-21 10:42] VITALS: O2SAT 100
[2024-06-21] MEDS ORDERED: Levofloxacin 250mg IV 250 MG/50 ML BAG IV SCH (11:00)
[2024-06-21] MEDS: ASPIRIN 81 MG CHEWABLE TABLET PO SCH (11:33)
[2024-06-21] MEDS: MIDODRINE HCL 5 MG TABLET PO PRN (11:33)
[2024-06-21] MEDS: Levofloxacin500mg IV 500 MG/100 ML BAG IV ONE (11:34)
--- NOTE | 2024-06-21 12:06 | P.DS ---
Admission Date: 06/20/24 Discharge Date: 06/21/24 Disposition: TRANSFER TO INPATIENT REHAB Discharge Condition: GOOD Reason for Admission: Foot wounds Consultations: Dr. Tyson General surgery Procedures: 06/21 Preoperative diagnosis: Necrotic infected bilateral feet and lower legs wounds Postoperative diagnosis: same Primary procedure: Excisional debridment down to subQ: 1. R lower leg 5x4cm Secondary procedure: 2. R heel 5x5cm, 3. L lower legs 6x3cm, 4 L heel 3x3cm Brief History of Present Illness: Patient was in inpatient rehab after a hospitalization at [facility] for chest pain with PCI/stent placement. During his stay in inpatient rehab he was found to have multiple wounds to his lower extremities including his heels which stage IV ulcerations and a cardiac issue present. Patient was evaluated by general surgery who recommended debridement take place, patient will be admitted to acute care for further management/debridement Hospital Course: Patient was admitted to the hospital for necrotic wounds to his right lower leg, right heel, left lower leg and left heel. He underwent excisional debridement down to the subcutaneous tissue of these wounds today and is stable for discharge to inpatient rehab. Wound care instructions: santyl with dry gauze to bilateral leg and feet daily Antibiotics-levofloxacin 250 mg IV after each dialysis Home medications-as previously prescribed Weight bearing status- WBAT per general surgery Vital Signs/Physical Exam: Temp Pulse Resp BP Pulse Ox 97.0 F 72 16 114/37 L 98 06/21/24 10:53 06/21/24 10:53 06/21/24 10:53 06/21/24 10:53 06/21/24 08:00 General: Alert, In no apparent distress, Oriented x3 HEENT: Atraumatic, PERRLA Neck: Supple, JVD not distended Respiratory: Clear to auscultation bilaterally, Normal air movement Cardiovascular: Regular rate/rhythm, Normal S1 S2 Gastrointestinal: Normal bowel sounds, No tenderness Musculoskeletal: No tenderness Integumentary: Diabetic ulcer Neurological: Normal speech, Normal tone, Normal affect Laboratory Data at Discharge: WBC 5.30 thou/uL (4.3-10.9) 06/21/24 06:12 Hgb 8.3 g/dL (13.6-17.9) L 06/21/24 06:12 Hct 25.7 % (39.6-49.0) L 06/21/24 06:12 Plt Count 137 thou/uL (152-406) L 06/21/24 06:12 Sodium 139 mEq/L (136-145) 06/21/24 06:12 Potassium 4.2 mEq/L (3.5-5.1) 06/21/24 06:12 BUN 13 mg/dL (7-18) 06/21/24 06:12 Creatinine 3.64 mg/dL (0.70-1.30) H 06/21/24 06:12 Glucose 108 mg/dL (74-106) H 06/21/24 06:12 Home Medications: Aspirin 81 mg PO DAILY 02/08/15 Atorvastatin Calcium [Lipitor] 40 mg PO BEDTIME 04/06/24 Gabapentin [Neurontin*] 200 mg PO BID 04/06/24 Hydrocodone 5/APAP 325 [[place] 5/325*] 1 tab PO Q4H PRN 04/06/24 Midodrine HCl [Proamatine*] 5 mg PO TID PRN 04/06/24 Nitroglycerin [Nitrostat*] 0.4 mg SL UD PRN 04/06/24 Semaglutide [Ozempic] 1 mg SQ UD 04/06/24 Ticagrelor [Brilinta*] 90 mg PO BID 04/06/24 Collagenase [Santyl Ointment*] 1 appl TOP DAILY #1 tube 04/13/24 methocarbamoL [Robaxin] 500 mg PO QIDP PRN 06/15/24 Amino Acids/Protein Hydrolys [Prosource No Carb Liquid Pkt] 30 ml PO BID 06/20/24 Docusate/Senna [Senokot-S] 2 tab PO BEDTIME 06/20/24 Epoetin [Procrit*] 8,000 units SQ UD 06/20/24 Ferrous Sulfate [Feosol] 325 mg PO DAILY 06/20/24 Heparin [Heparin 1,000 units/mL] 2,000 unit IJ EVERY HD 06/20/24 Magnesium Oxide [Mag 0X Tab] 400 mg PO DAILY 06/20/24 Melatonin [Melatonin*] 3 mg PO BEDTIME 06/20/24 Nepro Shake [Nepro*] 1 can PO BID 06/20/24 Sodium Thiosulfate [Pedmark] 25 gm IV UD 06/20/24 sevelamer HCL [Renagel] 1,600 mg PO TIDWM 06/20/24 Physician Discharge Instructions: Patient was admitted to the hospital for necrotic wounds to his right lower leg, right heel, left lower leg and left heel. He underwent excisional debridement down to the subcutaneous tissue of these wounds today and is stable for discharge to inpatient rehab. Wound care instructions: santyl with dry gauze to bilateral leg and feet daily Antibiotics-levofloxacin 250 mg IV after each dialysis Home medications-as previously prescribed Weight bearing status- WBAT per general surgery Diet: Renal Activity: Weight bearing as tolerated Followup: CLAUDINE CHOW [Primary Care Provider] - Time spent managing pt's care (in minutes): 34
--- NOTE | 2024-06-21 16:47 | CON ---
Date of Consultation: 06/21/2024 Chief Complaint: The patient was admitted to the hospital for wound debridement from the rehab, the patient with end-stage renal disease. History Of Present Illness: This is a pleasant 58-year-old gentleman with significant past medical h istory of hypertension, end-stage renal disease, currently on daily dialysis secondary to calciphylax is and wound in the legs, CAD status post CABG, peripheral vascular disease status post angioplasty, calciphylaxis status post mid finger amputation on the left and debridement on the leg. The patient was in rehab. The patient found to have ulceration that was worsening, for that reason, the patient transferred to the hospital for debridement. The patient did undergo debridement today by Dr. Char coughlin, tolerated very well. Past Medical History: Includes: 1.Hypertension. 2.Hyperlipidemia. 3.Diabetes. 4.Calciphylaxis. 5.CAD, status post CABG. 6.End-stage renal disease, on daily dialysis. 7.Calciphylaxis, on daily dialysis. 8.PAD. Past Surgical History: Includes: 1.Cardiac cath. 2.Appendectomy. 3.Amputation of the mid left finger. 4.Debridement on the leg. 5.Gastric bypass. 6.Foot surgery. 7.Cholecystectomy. Home Medications: Include aspirin, atorvastatin, gabapentin, hydrocortisone, sodium thiosulfate, met hocarbamol. Allergies: TO IODINE AND SHELLFISH. Family History: Positive for diabetes, chronic kidney disease, and liver disease. Social History: Lives with family. Denied smoking. Denied drinking. Denied drugs abuse. Review of Systems: Head and Neck: No red eye. No ear pain. GI: No nausea. No vomiting. : No polyuria. No dysuria. No hematuria. Manager Lighting: Not applicable. Respiratory: No shortness of breath. Cardiovascular: No chest pain. Endocrine: No polydipsia. Skin: No rash. Neuro: Has neuropathy. Musculoskeletal: Has leg pain. Physical Examination: Vital Signs: When I saw the patient, blood pressure 114/37, pulse of 72, afebrile. Chest: Clear to auscultation. Heart: S1, S2, regular, systolic murmur. Abdomen: Soft, nontender. Extremities: Dressing on both legs. Neurologic: Alert, no focality. Labs: Hemoglobin 8.3. Sodium 139, potassium 4.2, bicarb 26, BUN 13, creatinine 3.6. Calcium 8.5. Current Medications: The patient on include Brilinta, heparin, Epogen, midodrine, Levaquin, gabapent in. Assessment And Plan: 1.End-stage renal disease with calciphylaxis. We will continue daily dialysis and we will monitor t he patient. 2.Hypertension, controlled, optimal, continue current treatment. 3.Anemia of chronic kidney disease, we will resume CELI. 4.Wound calciphylaxis. We will continue daily dialysis. We will monitor the patient closely. 5.Hyponatremia. Will be corrected with dialysis. ALEXANDRA Voice ID: [id number] Report ID: [id number]
[2024-06-21] MEDS: SODIUM THIOSULFATE 100 ML IV SCH (17:45)
[2024-06-21] MEDS: EPOETIN ALFA 10,000 UNIT/ML VIAL IV SCH (18:30)
--- NOTE | 2024-06-21 21:02 | OP ---
Date of Procedure: 06/21/2024 Surgeon: Júnior Tyson MD Preoperative Diagnoses: Necrotic infected bilateral feet and lower leg wounds, history of renal fail ure, calciphylaxis. Postoperative Diagnoses: Necrotic infected bilateral feet and lower leg wounds, history of renal nila lure, calciphylaxis. Procedure: Excisional debridement down to subcutaneous of infected necrotic ulcers. 1.Right lower leg, 5 x 4 cm. 2.Right heel, 5 x 5 cm. 3.Left lower leg, 6 x 3 cm. 4.Left heel, 3 x 3 cm. Anesthesia: MAC plus local anesthetic. Complications: None. Specimens: Culture and necrotic tissue. Indications: This is a case of a 58-year-old patient who comes to the rehab with rehabilitation from his cardiac disease, comes also with necrotic ulcers due to possible calciphylaxis, being treated pr eviously in [facility] in [place]. Unfortunately developed bacteria underneath and started to get foul s melling and infected, so now we have to remove fat necrotic tissue. Very tender. He cannot have it done at bedside and so we were able to bring him down to the floor and basically booked him today for surgery with benefits, alternatives, and risks including, but not limited to, infection, bleeding, d amage to adjacent structures, anesthesia complication, nonhealing wound, TN, and even . He also understands this may not relieve any symptoms. He might need more than one surgical intervention. He understands also continued treatment with renal doctors for the calciphylaxis since once again unf ortunately may deposit on the skin and cause this kind of condition. He signed a consent. Procedure In Detail: The patient was brought to the operating room, placed in supine position. Anes thesia was done without complication. The areas of concern were previously marked by me and the wen ent in the holding room. After time-out, we proceeded to inject local anesthetic and using a sharp k nife and curette, we proceeded to do subcutaneous debridement of all those areas mentioned above. He mostasis was obtained with pressure. Then, we put Santyl and dry gauze. The patient tolerated proced ure well. The patient was sent to recovery in stable condition. We are going to continue on antibio tics. I discussed the case with Dr. Kulkarni and he helped me with the antibiotics that he will need obviously depending on the culture. RAY/MODL Voice ID: [id number] Report ID: [id number]
[2024-06-21 21:10] VITALS: BP 92/42; TEMP 97.4
== END 2024-06-21 21:20 ==
LOC: 4TH 15:50
PROVIDERS: ADMIT Hospitalist; ATTEND Hospitalist
PROC: 0JBN3ZZ Excision of Right Lower Leg Subcutaneous Tissue and Fascia, Percutaneous Approach (ICD-10-PCS; 2024-06-21)
PROC: 0JBP3ZZ Excision of Left Lower Leg Subcutaneous Tissue and Fascia, Percutaneous Approach (ICD-10-PCS; 2024-06-21)
PROC: 0JBQ3ZZ Excision of Right Foot Subcutaneous Tissue and Fascia, Percutaneous Approach (ICD-10-PCS; 2024-06-21)
PROC: 0JBR3ZZ Excision of Left Foot Subcutaneous Tissue and Fascia, Percutaneous Approach (ICD-10-PCS; principal; 2024-06-21 10:30)
DX: E11.621 Type 2 diabetes mellitus with foot ulcer (principal); L97.422 Non-pressure chronic ulcer of left heel and midfoot with fat layer exposed; L97.412 Non-pressure chronic ulcer of right heel and midfoot with fat layer exposed; L97.222 Non-pressure chronic ulcer of left calf with fat layer exposed; L97.212 Non-pressure chronic ulcer of right calf with fat layer exposed; I96 Gangrene, not elsewhere classified; N18.6 End stage renal disease; I25.10 Atherosclerotic heart disease of native coronary artery without angina pectoris; I50.9 Heart failure, unspecified; G72.9 Myopathy, unspecified; E11.9 Type 2 diabetes mellitus without complications; I10 Essential (primary) hypertension; E78.5 Hyperlipidemia, unspecified; E87.1 Hypo-osmolality and hyponatremia; E83.59 Other disorders of calcium metabolism; Z99.2 Dependence on renal dialysis; Z95.5 Presence of coronary angioplasty implant and graft; Z95.1 Presence of aortocoronary bypass graft; Z98.84 Bariatric surgery status; Z89.022 Acquired absence of left finger(s); Z90.49 Acquired absence of other specified parts of digestive tract; Z91.09 Other allergy status, other than to drugs and biological substances; Z91.013 Allergy to seafood; Z84.1 Family history of disorders of kidney and ureter; Z83.3 Family history of diabetes mellitus
CPT/HCPCS: 87070; 85025; 80048; 36415; 87205 ×2; 88305; 87075; 90935 ×2; 11042; 11045 ×3; J3590; Q4081; J2371; J2250; J3010; J2270; J1644; J7040; J0690; 88304; G0378; G0379

== ENCOUNTER 2024-06-21 15:00 | Inpatient (IN) | payer OTHER ==
[2024-06-21 22:07] VITALS: BMI 32.5
[2024-06-21] MEDS: HYDROCODONE/APAP 5/325 MG TAB PO PRN (23:02)
[2024-06-22] MEDS ORDERED: DOCUSATE NA/SENNA CONC 1 TAB PO PRN (00:24)
[2024-06-22] MEDS ORDERED: MIDODRINE HCL 5 MG TABLET PO PRN (00:29)
[2024-06-22] MEDS ORDERED: NITROGLYCERIN 0.4 MG/TAB SL PRN (00:30)
[2024-06-22 03:32] LABS: Absolute Lymphocytes (CBC) 0.8 K/uL (0.7-4.9); Absolute Monocytes 0.4 K/uL (0.1-1.3); Absolute Neutrophil 3.9 K/uL (1.8-8.0); Basophils % 0.2 % (0-1.3); Hematocrit 22.4 % (39.6-49.0); Hemoglobin 7.6 g/dL (13.6-17.9); Lymphocytes % 14.6 % (15.3-44.8); MCH 32.7 pg (27.0-35.0); MCHC 33.9 g/dL (32.0-36.0); MCV 96.4 fL (80-100); Monocytes % 8.4 % (3.3-12.3); Neutrophils % 76.8 % (41.7-73.7); Platelets 115 thou/uL (152-406); RBC Red Blood Cell Count 2.33 M/uL (4.33-5.43); Red Cell Distribution Width 19.6 % (12.1-15.2)
[2024-06-22 03:44] LABS: Albumin 1.5 g/dL (3.4-5.0); Anion Gap 14.9 mEq/L (5.0-15.0); Magnesium 1.8 mg/dL (1.6-2.4); Potassium 3.9 mEq/L (3.5-5.1); Prealbumin 11.8 mg/dL (20-40)
[2024-06-22] MEDS: FLU (Fluarix Triv) TS24-25(6MOS UP)/PF 45 MCG/0.5 ML Syringe IM ONE (07:30)
[2024-06-22] MEDS ORDERED: SODIUM THIOSULFATE 100 ML IV SCH (08:00)
[2024-06-22] MEDS: AMINO ACIDS/PROTEIN HYDROLYS 30 ML LIQUID.PKT PO SCH (08:00)
[2024-06-22] MEDS: COLLAGENASE 30 GM OINTMENT TOP SCH (08:00)
[2024-06-22] MEDS ORDERED: EPOETIN ALFA 10,000 UNIT/ML VIAL SQ SCH (08:00)
[2024-06-22] MEDS ORDERED: SODIUM THIOSULFATE 25 GM IV SCH (08:00)
[2024-06-22] MEDS: NEPRO SHAKE 237 ML CAN PO SCH (08:00)
[2024-06-22] MEDS: SEVELAMER CARBONATE 800 MG TABLET PO SCH (08:31)
[2024-06-22] MEDS: methocarbamoL 500 MG TAB PO SCH (08:31)
[2024-06-22] MEDS: TICAGRELOR 90 MG TABLET PO SCH (08:31)
[2024-06-22] MEDS: GABAPENTIN 100 MG CAP PO SCH (08:32)
[2024-06-22] MEDS: ASPIRIN EC 81 MG TAB PO SCH (08:32)
[2024-06-22] MEDS: FERROUS SULFATE 325 MG TAB PO SCH (08:32)
[2024-06-22] MEDS: MAGNESIUM OXIDE 400 MG TAB PO SCH (08:33)
--- NOTE | 2024-06-22 11:39 | P.CNS ---
Date of Consult: 06/22/24 Reason for Consult: ESKD Chief Complaint: leg pain History of Present Illness: 58-year-old gentleman with significant past medical history of hypertension, end-stage renal disease, currently on daily dialysis secondary to calciphylaxis and wound in the legs, CAD status post CABG, peripheral vascular disease status post angioplasty, calciphylaxis status post mid finger amputation on the left and debridement on the leg. The patient was in rehab. The patient found to have ulceration that was worsening, for that reason, the patient transferred to the hospital for debridement. The patient did undergo debridement today by Dr. Hutchins, tolerated very well. Patient was a transfer back to the rehab to continue PT OT Allergies iodine Allergy (Severe, Verified 06/20/24 13:03) Shortness of breath SHELLFISH Allergy (Intermediate, Uncoded 04/09/24 14:32) Hives/Rash Home Medications: Aspirin 81 mg PO DAILY 02/08/15 Atorvastatin Calcium [Lipitor] 40 mg PO BEDTIME 04/06/24 Gabapentin [Neurontin*] 200 mg PO BID 04/06/24 Hydrocodone 5/APAP 325 [[place] 5/325*] 1 tab PO Q4H PRN 04/06/24 Midodrine HCl [Proamatine*] 5 mg PO TID PRN 04/06/24 Nitroglycerin [Nitrostat*] 0.4 mg SL UD PRN 04/06/24 Semaglutide [Ozempic] 1 mg SQ UD 04/06/24 Ticagrelor [Brilinta*] 90 mg PO BID 04/06/24 Collagenase [Santyl Ointment*] 1 appl TOP DAILY #1 tube 04/13/24 methocarbamoL [Robaxin] 500 mg PO QIDP PRN 06/15/24 Amino Acids/Protein Hydrolys [Prosource No Carb Liquid Pkt] 30 ml PO BID 06/20/24 Docusate/Senna [Senokot-S*] 2 tab PO BEDTIME 06/20/24 Epoetin [Procrit*] 8,000 units SQ UD 06/20/24 Ferrous Sulfate [Ferrous Sulfate*] 325 mg PO DAILY 06/20/24 Heparin [Heparin 1,000 units/mL *] 2,000 unit IJ EVERY HD 06/20/24 Magnesium Oxide [Mag 0X*] 400 mg PO DAILY 06/20/24 Melatonin [Melatonin*] 3 mg PO BEDTIME 06/20/24 Nepro Shake [Nepro*] 1 can PO BID 06/20/24 Sodium Thiosulfate [Pedmark] 25 gm IV UD 06/20/24 sevelamer HCL [Renagel] 1,600 mg PO TIDWM 06/20/24 - Past Medical/Surgical History Diabetic: Yes -: HTN -: Hyperlipidemia -: [place] X4 -: IDDM -: CHF -: ESRD -: CABG x 3 vessels -: Cardiac cath with 1 stent -: Appendectomy -: upper left arm HD graph -: Gastric Bypass -: Right foot sx -: Morbid obesity -: Cholecystectomy - Family History Mother Medical History: Hypertension, Diabetes, Cancer, Liver disease, Other (see no manuel) Notes: Breast CA - Social History Smoking Status: Never smoker Alcohol use: No CD- Drugs: No Caffeine use: No Place of Residence: Home Review of Systems 10-point ROS is otherwise unremarkable (Except patient complaining of from leg pain) Musculoskeletal: Foot Pain Physical Examination Temp Pulse Resp BP Pulse Ox 97.2 F 62 16 95/45 L 100 06/22/24 06:44 06/22/24 06:44 06/22/24 10:25 06/22/24 06:44 06/22/24 10:25 General: Alert, Oriented x3 HEENT: Atraumatic, PERRLA Neck: Supple, JVD not distended Respiratory: Clear to auscultation bilaterally Cardiovascular: No edema Gastrointestinal: Normal bowel sounds, Soft and benign, Non-distended Musculoskeletal: No clubbing, No swelling, Other (Amputation of the middle finger of the left hand dressing on both feet and leg) Neurological: Normal gait, Normal strength at 5/5 x4 extr, Cranial nerves 3-12 intact Laboratory Data (last 24 hrs) 06/22/24 06/22/24 03:00 03:00 WBC 5.10 Hgb 7.6 L D Hct 22.4 L Plt Count 115 L Sodium 142 Potassium 3.9 BUN 8 Creatinine 2.88 H Glucose 126 H Magnesium 1.8 Conclusions/Impression: [id number] And Plan: 1. End-stage renal disease with calciphylaxis. We will continue daily dialysis and we will monitor the patient. 2. Hypertension, controlled, optimal, continue current treatment. 3. Anemia of chronic kidney disease, we will resume CELI. 4. Wound calciphylaxis. We will continue daily dialysis. We will monitor the patient closely. 5. Hyponatremia. Will be corrected with dialysis
[2024-06-22] MEDS: HYDROCODONE/APAP 7.5/325 MG TAB PO PRN (14:18)
[2024-06-22] MEDS ORDERED: GABAPENTIN 300 MG CAP ONE (15:24)
[2024-06-22] MEDS: GABAPENTIN 300 MG CAP PO SCH (15:30)
[2024-06-22] MEDS: NA CHLORIDE 0.9% 1,000 ML IV SCH (15:30)
--- NOTE | 2024-06-22 16:28 | CON ---
Date of Consultation: 06/22/2024 History Of Present Illness: The patient admitted for rehab. We have been consulted for end-stage re nal disease, calciphylaxis. This is a 58-year-old gentleman well known to me from the dialysis with significant past medical hist ory of CAD, status post CABG, peripheral vascular disease. DICTATION ENDS HERE. ALEXANDRA Voice ID: [id number] Report ID: [id number]
[2024-06-22] MEDS ORDERED: EPOETIN ALFA 4,000 UNIT/ML VIAL IV SCH (17:00)
--- NOTE | 2024-06-22 17:46 | RAD REPORT ---
EXAMINATION: UPPER EXTREMITY VENOUS UNILATE CLINICAL INDICATION: Male, 58 years old. [facility] MAIN pain r/o dvt TECHNIQUE: Complete venous duplex sonography of the left upper extremity was performed. The examinati on included compression for vein patency, color Doppler imaging and flow augmentation in response to distal compression of the internal jugular, brachiocephalic, subclavian, axillary, brachial, radia l, ulnar, cephalic and basilic veins. COMPARISON: No prior exam. FINDINGS: Duplex sonography testing of the veins of the left upper extremity is completed. Color flow imaging s hows all veins to be compressible with appropriate color filling. Pulsatile and phasic flow is present within the upper extremity deep veins examined. Noncompressible cephalic vein with hypoechoic thrombus within. Near the level of the antecubital fossa, an ovoid structure appears to be communicating with the brachial artery at its proximal aspect, demonstrating arterial flow signal wit hin, one in its distal aspect extends to the level of the hypodermis, demonstrating hypoechoic thrombus. Overall, this measures 4.1 x 1.5 x 1.7 cm, and demonstrates areas of mineralization along i ts superficial wall. IMPRESSION: No evidence of deep venous thrombosis in the left upper extremity. Superficial venous thrombosis of the cephalic vein. 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 THIS REPORT CONTAINS FINDINGS THAT MAY BE CRITICAL TO PATIENT CARE. The findings were verbally commun icated via telephone to Damián Franklin MD on 06/22/2024 5:40 PM.
[2024-06-22] MEDS: HYDROCODONE/APAP 10/325 TAB PO PRN (19:19)
[2024-06-22] MEDS ORDERED: MIDODRINE HCL 5 MG TABLET PO SCH (20:00)
[2024-06-22] MEDS: ALBUMIN HUMAN 25% 100 ML IV ONE (20:00)
[2024-06-22 20:04] VITALS: BP 111/49; TEMP 98.3
--- NOTE | 2024-06-22 20:42 | RAD REPORT ---
EXAM: CT Shoulder Left Wo Con HISTORY: pain r/o fx COMPARISON: None TECHNIQUE: Multiple contiguous axial images were obtained in a CT of the left shoulder without IV con trast. Sagittal and coronal reformats were performed. One or more of the following dose reduction techniques were used: Automated exposure control, adjustment of the mA and kV according to patient si ze, and iterative reconstruction. Unless otherwise specified, incidental findings do not require dedicated imaging follow-up. FINDINGS: No evidence of acute fracture or dislocation. Moderate degenerative changes of the AC joint, with yasmine nt effusion versus bursal swelling projecting superiorly. Moderate soft tissue swelling along the subacromial space, could relate to ongoing rotator cuff pathology. No appreciable joint effusion. Mild glenohumeral joint degenerative changes. No suspicious focal osseous lesion otherwise. Small layering left pleural effusion. Sequelae of median sternotomy. Visualized upper arm soft tissu es show moderate subcutaneous edema. IMPRESSION: No evidence of acute osseous abnormality of the left shoulder. Moderate degenerative changes at the AC joint, with effusion versus bursal swelling projecting superi nelly. Mild glenohumeral joint degenerative changes. Moderate soft tissue swelling along the subacromial space, could relate to ongoing rotator cuff patho logy, which would be better evaluated by MRI if clinically indicated.
[2024-06-22] MEDS ORDERED: ATORVASTATIN 40 MG TAB PO SCH (21:00)
[2024-06-22] MEDS ORDERED: MELATONIN 3 MG TABLET PO SCH (21:00)
--- NOTE | 2024-06-23 02:14 | HP ---
Date of Admission: 06/21/2024 Time Of Service: 1:10 p.m. Chief Complaint: "I had surgery and now I'm back to complete therapy." History Of Present Illness: Mr. Fuentes is a 58-year-old patient with multiple medical problems includi ng end-stage renal disease, on hemodialysis. He has calciphylaxis requiring multiple times, up to 5 times per week dialysis. He has bilateral necrotic ulcers of the lower extremity and was taken down for debridement by Dr. Tyson. In addition, additional comorbidities are diabetes, myocardial infa rction, anemia, and debility. He initially was in the rehabilitation unit and was discharged on 12/2023 to the floor to have the procedure done. The procedure was done. He came back to the unit on 06/21/2024 to continue therapy. He did begin therapy in the afternoon, however, began to have sever e pain in the left arm and family were concerned of the possibility of a deep vein thrombus in that a rm. The reported prior scan of the left arm did show a mass, but it was not identified as a deep vei n thrombus. Given his calciphylaxis, additional imaging has been ordered. A venous Doppler study wa s done on the left arm, but the results are still pending. In addition, CT scan of left arm and shou lder is also pending. The family is very highly interested in the patient being transferred back to [facility], where his surgeon who evaluated him and that process is being attempted at this point to initia te a transfer back to [facility] for higher level of care. However, this was discussed with the patient's family and the nurses did communicate that he requires some more imaging immediately before we can be gin to initiate the transfer, but that process has begun and is ongoing. In the meantime, in terms o f his medications to address the pain related to his left arm, his Franklin was escalated from 5/325 to 7.5 and now 10/325 every 6 hours. Gabapentin was escalated to 300 mg twice daily. He in addition mills s on board lidocaine patch over that area. Past Medical History: As noted above including chronic anemia, CHF myopathy, calciphylaxis, end-stag e renal disease, on hemodialysis, decreased mobility, decreased physical functioning, hypertension, h yperkalemia, malnutrition, peripheral vascular disease, bilateral lower extremity necrotic ulcers haley t are recently debrided. Allergies: IODINE AND SHELLFISH. Current Medications: Franklin 10/325 every 6 hours for severe pain. He is on albumin 25% 25 g given on ce, he has amino acid ProSource 30 mL twice daily, aspirin 81 mg daily, Lipitor 40 mg at bedtime, col lagenase Santyl ointment apply topically daily to wounds, Nepro shake 237 mL twice daily, Procrit 800 0 units every hemodialysis, ferrous sulfate 325 mg daily, gabapentin 300 mg twice daily, heparin 2000 units every hemodialysis, he has received influenza vaccine A and B, magnesium oxide 400 mg twice da kai, melatonin 3 mg at bedtime, Robaxin 500 mg 4 times daily, midodrine for pressure support 5 mg twi ce daily, Nitrostat 0.4 mg sublingual daily, Senokot-S 2 tablets at bedtime, Renvela 600 mg 3 times d aily, sodium thiosulfate 100 mg daily, and Brilinta 90 mg twice daily. Family History: Noncontributory. Laboratory Studies: White blood cell count 5.1, hemoglobin 7.6, platelets 115. Sodium 142, potassiu m 3.9, chloride 105, carbon dioxide 26, BUN 8, creatinine 2.88, glucose 126, calcium 8.3, magnesium 1 .8, albumin 1.5, prealbumin 11.8. Note, he does have venous Doppler of left upper extremity and CT s can of the left arm and shoulder and EKG pending. Review of Systems: As noted, severe pain in the left shoulder and arm and being evaluated currently, some moderate pain in the lower extremity stump area and pain medications again were escalated. Physical Examination: Vital Signs: Blood pressure down to 95/45, pulse 62, respiratory rate 16, temperature 97.2, oxygen s aturation 100%. General: Mr. Fuentes is sitting in a chair beside bed. HEENT: Appears to be normocephalic, atraumatic. Sclerae anicteric. Oropharynx pink and moist. Abdomen: Soft. Extremities: Does have chronic swelling in the left arm. Tenderness and pain in the left arm, shoul seema, and some edema again in the distal left arm more than the right. Mild edema on the right side a nd good air movement. He does have the debridement of ulcers on both lower extremities and is able t o move both lower extremities dorsally and plantar flexion present, but weakness is present, more pro ximally than distally in the lower extremities. Assessment: Mr. Fuentes is a 58-year-old patient, who is back in the rehabilitation unit for continuing therapy for CHF myopathy with proximal muscle weakness. He has multiple comorbid conditions includi ng again severe pain in his left arm with some swelling and also pain in the shoulder. He has had es calated multiple pain medications and pain modalities. He has pending Doppler of the left upper arm to rule out deep vein thrombus. He does have CT scan pending and EKG pending. It is possible the pa in may be related to his calciphylaxis and the possibility of a mass related to that, needs to be exp lored and that is currently ongoing. He has peripheral vascular disease, also again increased risk o f deep vein thrombus in the left upper extremity. He is followed by the [facility]al Service for chronic re nal disease. He of course has dyslipidemia, hypertension, hyperkalemia, all being managed as well. Plan: He is able to remain in the unit and not have a transfer for higher level of care. We will co ntinue with physical and occupational therapy, 3 hours a day, 5 of 7 days. His medications that are noted above will be continued including for pain, will have Franklin 10/325, gabapentin on board, lidoca ine patch on board, also tramadol as appropriate. We will continue Nitrostat for his chest pain, mid odrine for pressure support, Robaxin for muscle spasms. He does have ongoing a liter of normal salin e given his severe hypotension and blood pressure medications held if systolic less than 120. He has the amino acid for his malnutrition, atorvastatin for dyslipidemia, Brilinta and aspirin for stroke and DVT risk reduction, he has collagenase apply to his wounds. KERRI/TENNILLE Voice ID: [id number]
--- NOTE | 2024-06-23 15:09 | EKG ---
Test Date: 2024-06-22 Test Time: 17:31:58 Stock Checker: MARIA VICTORIA MEASUREMENT RESULTS: Intervals: Rate: 66 ID: [id number] QRSD: 128 QT: 452 QTc: 473 [place]: P: 20 ID: [id number] QRS: -48 T: -2 INTERPRETIVE STATEMENTS: Sinus rhythm with marked sinus arrhythmia Right bundle branch block Left anterior fascicular block Bifascicular block Abnormal ECG Compared to ECG 04/22/2015 18:11:33 Left anterior fascicular block now present Bifascicular block now present Left-axis deviation no longer present Electronically Signed On 06-23-24 15:07:01 SPECIMEN ACCESSIONER by Gunnar Philip
[2024-06-24] MEDS ORDERED: INFLUENZA VACCINE (for 6+ mo) 0.5 ML DOSE IMVAC ONE (08:00)
== END 2024-06-22 20:59 | disposition short-term general hospital (02) | DRG 91 ==
LOC: 5TH 21:18
PROVIDERS: ADMIT Psychiatry & Neurology Neurology with Special Qualifications in Child Neurology; ATTEND Psychiatry & Neurology Neurology with Special Qualifications in Child Neurology
DX: G72.89 Other specified myopathies (principal); N18.6 End stage renal disease; I13.2 Hypertensive heart and chronic kidney disease with heart failure and with stage 5 chronic kidney disease, or end stage renal disease; E87.1 Hypo-osmolality and hyponatremia; E46 Unspecified protein-calorie malnutrition; E11.52 Type 2 diabetes mellitus with diabetic peripheral angiopathy with gangrene; I96 Gangrene, not elsewhere classified; E78.5 Hyperlipidemia, unspecified; E87.5 Hyperkalemia; I25.10 Atherosclerotic heart disease of native coronary artery without angina pectoris; E11.22 Type 2 diabetes mellitus with diabetic chronic kidney disease; I50.9 Heart failure, unspecified; D63.1 Anemia in chronic kidney disease; E83.59 Other disorders of calcium metabolism; Z95.1 Presence of aortocoronary bypass graft; Z99.2 Dependence on renal dialysis; Z68.32 Body mass index [BMI] 32.0-32.9, adult
CPT/HCPCS: 36415; 73200; 80048; 82040; 83735; 84134; 85025; 93005; 93971; 97110; 97116; 97530; 97542; J0885; J1644; J3590; J7030; P9047

== ENCOUNTER 2024-07-15 19:46 | Emergency (ER) | payer OTHER ==
[2024-07-15] MEDS ORDERED: ALBUMIN HUMAN 25% 100 ML IV ONE ×2 (20:49→22:59)
[2024-07-15] MEDS ORDERED: PANTOPRAZOLE 40 MG INJ ONE ×2 (20:49→22:58)
[2024-07-15] MEDS ORDERED: NA CHLORIDE 0.9% 1,000 ML ONE (20:49)
[2024-07-15] MEDS ORDERED: IBUPROFEN 400 MG TAB ONE (20:49)
[2024-07-15 20:52] LABS: Absolute Lymphocytes (CBC) 0.5 K/uL (0.7-4.9); Absolute Monocytes 0.6 K/uL (0.1-1.3); Absolute Neutrophil 5.2 K/uL (1.8-8.0); Basophils % 0.1 % (0-1.3); Hematocrit 24.3 % (39.6-49.0); MCH 31.4 pg (27.0-35.0); MCV 95.3 fL (80-100); Monocytes % 8.9 % (3.3-12.3); Nucleated Red Blood Cells % 0.1 % (0-0); Platelets 142 thou/uL (152-406); RBC Red Blood Cell Count 2.56 M/uL (4.33-5.43); Red Cell Distribution Width 23.1 % (12.1-15.2)
[2024-07-15 20:55] LABS: PT Prothrombin Time 20.6 SECONDS (9.4-12.5); Protime INR 1.87
[2024-07-15 21:24] LABS: AST/SGOT 17 U/L (15-37); Albumin 1.2 g/dL (3.4-5.0); Albumin/Globulin Ratio 0.4 (1.1-1.8); Alkaline Phosphatase 204 U/L (45-117); Anion Gap 14.6 mEq/L (5.0-15.0); BUN Blood Urea Nitrogen 25 mg/dL (7-18); Bicarbonate 25 mEq/L (21-32); Bilirubin Direct 0.3 mg/dL (0-0.2); Bilirubin Indirect, Calculated 0.3 mg/dL (0.2-0.8); Bilirubin Total 0.6 mg/dL (0.2-1.0); Globulin 2.8 g/dL (2.3-3.5); Glomerular Filtration Rate 15 ml/min (=/>90); Glucose Level 136 mg/dL (74-106); Magnesium 1.9 mg/dL (1.6-2.4); NT PRO-BNP 81794 pg/mL (<125); Potassium 3.6 mEq/L (3.5-5.1); Sodium Level 137 mEq/L (136-145); Troponin High Sensitivity 37.1 pg/mL (<58.9)
[2024-07-15 21:25] LABS: ALT/SGPT < 14 U/L (16-61)
[2024-07-15] MEDS ORDERED: NA CHLORIDE 0.9% 250 ML ONE ×2 (21:50→22:59)
--- NOTE | 2024-07-15 22:10 | RAD REPORT ---
EXAM: Chest Single View HISTORY: GI bleed COMPARISON: 04/22/2015 FINDINGS: LUNGS/PLEURA: Pulmonary vascular congestion. MEDIASTINUM: The mediastinal silhouette is within normal limits. CARDIAC: Cardiac negative. UPPER ABDOMEN: No significant abnormality. BONES: No acute fracture. LINES/TUBES/OTHER: Sternotomy IMPRESSION: Pulmonary vascular congestion.
[2024-07-15 22:12] LABS: Anisocytosis 1+; Blood Morphology Comment NOTED (NOT SEEN); Platelet Estimate DECR; White Blood Cell Scan OK (OK)
[2024-07-15 22:13] LABS: Poikilocytosis 1+
--- NOTE | 2024-07-15 22:34 | EDPHYS ---
Physician Documentation [facility] [place], [place] Name: Benjamin Fuentes Age: 58 yrs Sex: Male : 1965 Arrival Date: 07/15/2024 Time: 19:46 Bed 15 Private MD: ED Physician Philip Cárdenas HPI: 07/15 19:52 This 58 yrs old Male presents to ER via Unassigned with complaints of Rectal sp4 Bleeding. 22:11 58-year-old male presents with acute dark maroon stool.. sp4 22:22 Patient presents with EMS hypotensive with report of acute gastrointestinal bleed at sp4 the [facility]. Patient on arrival is lucid. Patient's past medical history includes end-stage renal disease, on dialysis with last dialysis on Wednesday, major depressive disorder, type 2 diabetes, essential hypertension, coronary artery disease, calciphylaxis, right subclavian blood clot, anemia of chronic disease, hyperlipidemia, chronic atrial fibrillation, congestive heart failure, peripheral vascular disease, right below-knee amputation, chronic pressure ulcer left heel. Moderate to severe physical deconditioning. . Historical: - Allergies: 20:09 No Known Allergies; dd2 - Immunization history:: Adult Immunizations up to date. - Infectious Disease History:: Denies. - Social history:: Smoking status: Patient denies any tobacco usage or history of. - Family history:: not pertinent. ROS: 22:22 Constitutional: Negative for fever, chills, and weight loss, Positive Generalized sp4 weakness , Positive rectal bleeding, positive hypotension. 22:22 All other systems are negative, Exam: 22:22 Constitutional: This is a well developed, well nourished patient who is awake, Ill sp4 appearing, toxic appearing, hypotensive, pale, decon Head/Face: Normocephalic, atraumatic. Eyes: Pupils equal round and reactive to light, extra-ocular motions intact. Lids and lashes normal. Conjunctiva and sclera are not injected. Cornea within normal limits. Periorbital areas with no swelling, redness, or edema. ENT: Nares patent. No nasal discharge, no septal abnormalities noted. Tympanic membranes are normal and external auditory canals are clear. Oropharynx with no redness, swelling, or masses, exudates, or evidence of obstruction, uvula midline. Mucous membranes moist. Neck: Trachea midline, no thyromegaly or masses palpated, and no cervical lymphadenopathy. Supple, full range of motion without nuchal rigidity, or vertebral point tenderness. Chest/axilla: Normal chest wall appearance and motion. Nontender with no deformity. No lesions are appreciated. Cardiovascular: Regular rate and rhythm with a normal S1 and S2. No gallops, murmurs, or rubs. Normal PMI, no JVD. No pulse deficits. Respiratory: Lungs have equal breath sounds bilaterally, clear to auscultation and percussion. No rales, rhonchi or wheezes noted. No increased work of breathing, no retractions or nasal flaring. Abdomen/GI: Soft, with normal bowel sounds. No distension or tympany. No guarding or rebound. No evidence of tenderness throughout. Back: No spinal tenderness. No costovertebral tenderness. Skin: Warm, dry with normal turgor. Normal color with no rashes, no lesions, and no evidence of cellulitis. MS/ Extremity: Pulses equal, no cyanosis. Neurovascular intact. Right BKA with wound dehiscence . Neuro: Awake and alert, GCS 15, oriented to person, place, time, and situation. Cranial nerves II-XII grossly intact. Motor strength 5/5 in all extremities. Sensory grossly intact. Psych: Awake, alert, with orientation to person, place and time. Behavior, mood, and affect are within normal limits Vital Signs: 20:04 BP 106 / 76; Pulse 81; Resp 16; Pulse Ox 98% ; Weight 86.64 kg (M); dd2 20:09 BP 87 / 68; Pulse 76; Resp 16; Temp 98.2; Pulse Ox 98% ; dd2 20:16 BP 73 / 43; Pulse 75; Resp 15; Pulse Ox 100% on 2 lpm NC; dd2 20:30 BP 77 / 40; Pulse 78; Resp 15; Pulse Ox 100% on 2 lpm NC; dd2 20:45 BP 78 / 39; Pulse 74; Resp 15; Pulse Ox 100% on 2 lpm NC; dd2 21:15 BP 82 / 62; Pulse 70; Resp 15; Pulse Ox 100% on 2 lpm NC; dd2 21:45 BP 83 / 63; Pulse 77; Resp 15; Pulse Ox 100% on 2 lpm NC; dd2 22:02 BP 83 / 63; Pulse 79; Resp 16; Pulse Ox 100% on 2 lpm NC; dd2 23:10 BP 86 / 66; Pulse 76; Resp 15; Pulse Ox 100% on 2 lpm NC; dd2 23:20 BP 73 / 54; Pulse 76; Resp 15; Pulse Ox 100% on 2 lpm NC; dd2 23:25 BP 84 / 65; Pulse 72; Resp 15; Temp 98.5; Pulse Ox 100% on 2 lpm NC; dd2 22:02 ALL VITAL SIGNS DOCUMENTED ON THE BLOOD TRANSFUSION FLOW SHEET X2 UNITS dd2 [place] Coma Score: 20:10 Eye Response: spontaneous(4). Motor Response: obeys commands(6). Verbal Response: dd2 oriented(5). Total: 15. 22:22 Eye Response: spontaneous(4). Motor Response: obeys commands(6). Verbal Response: sp4 oriented(5). Total: 15. Procedures: 22:20 Central Line: the site was prepped with Betadine, in sterile fashion, a triple lumen sp4 catheter was inserted, in the right femoral vein, in 1 attempts. placement was verified, by blood return, Ultrasound guided central line , the site was dressed with 4X4s, Tegaderm, using sterile technique, the patient tolerated the procedure, well. Performed LEFT EJ IV Catheter placement . Left EJ Catheter placed by MD for emergent resuscitation. Patient has very poor peripheral vascular access. MDM: 19:54 Medical Screening Exam initiated sp4 22:19 Differential diagnosis: hemorrhoids, fissure, abscess, pilonidal cyst, condyloma, sp4 Diverticular bleed. Data reviewed: vital signs, nurses notes, EMS record, old medical records, lab test result(s), EKG, radiologic studies, plain films. 22:20 ED course: HISTORY: GI bleed COMPARISON: 04/22/2015 FINDINGS: LUNGS/PLEURA: Pulmonary sp4 vascular congestion. MEDIASTINUM: The mediastinal silhouette is within normal limits. CARDIAC: Cardiac negative. UPPER ABDOMEN: No significant abnormality. BONES: No acute fracture. LINES/TUBES/OTHER: Sternotomy IMPRESSION: Pulmonary vascular congestion. 22:30 Consideration of Admission/Observation Escalation of care including sp4 admission/observation considered. Management of patient was discussed with the following: Women'S Activities Adviser: ICU at [facility] . ED course: Patient has very poor vascular access and the only place central line placement was possible was right femoral vein. Central line attempt at the left internal jugular vein was not successful. Left external jugular line was started. . 07/15 19:52 Order name: Type And Screen [facility] 07/15 19:52 Order name: Basic Metabolic Panel; Complete Time: 22:12 [facility] 07/[facility] 19:52 Order name: CBC with Diff; Complete Time: 22:30 [facility] 07/15 19:52 Order name: LFT's; Complete Time: 22:12 [facility] 07/15 19:52 Order name: Magnesium; Complete Time: 22:12 [facility] 07/15 19:52 Order name: NT PRO-BNP; Complete Time: 22:12 [facility] 07/15 19:52 Order name: PT-INR; Complete Time: 22:12 [facility] 07/15 19:52 Order name: Troponin HS; Complete Time: 22:12 [facility] 07/15 21:28 Order name: Packed RBCs (Additional Unit) [facility] 07/15 21:33 Order name: Type And Screen [facility] 07/15 21:36 Order name: ABO/RH no charge; Complete Time: 22:12 [facility] 07/15 22:13 Order name: CBC Smear Scan; Complete Time: 22:30 [facility] 07/15 19:52 Order name: XRAY Chest (1 view); Complete Time: 22:12 [facility] 07/15 19:52 Order name: Cardiac monitoring; Complete Time: 00:23 [facility] 07/15 19:52 Order name: EKG - Nurse/Tech; Complete Time: 00:23 [facility] 07/15 19:52 Order name: IV Saline Lock; Complete Time: 00: [facility] 07/[facility] 19:52 Order name: Labs collected and sent; Complete Time: [facility]: [facility] 07/[facility] 19:52 Order name: O2 Per Protocol; Complete [facility]: 00: [facility] 07/15 19:52 Order name: O2 Sat Monitoring; Complete [facility]: 00: [facility] 07/15 19:53 Order name: Central Line Dressing Kit; Complete Time: 00: 4 07/15 19:53 Order name: Central Line Kit; Complete [facility]: [facility] 07/[facility] 19:53 Order name: Chlorhexidine prep; Complete [facility]: 00: [facility] 07/[facility] 19:53 Order name: Consent for central line completed; Complete Time: 00: sp4 07/15 19:53 Order name: Line Caps x3; Complete Time: 00: sp4 07/15 19:53 Order name: NS Flushes x3; Complete Time: 00: sp4 07/15 19:53 Order name: Sterile Gloves; Complete Time: 00:23 sp4 07/15 19:53 Order name: Sterile Probe Cover; Complete Time: 00: sp4 Administered Medications: 21:01 Drug: Albumin IVPB 25 grams 100 ml IVPB once; (Note: Albumin 25% concentration) Volume: dd2 100 ml; Route: IVPB; Site: left jugular; 21:16 Follow up: Response: No adverse reaction dd2 22:01 Follow up: IV Status: Completed infusion; IV Intake: 100ml dd2 21: Drug: NS 0.9% IV 1000 ml IV at 1000 ml once; to be given as a bolus over 60 minutes dd2 Route: IV; Rate: 1000 ml; Site: left jugular; 21:16 Follow up: Response: No adverse reaction dd2 22:01 Follow up: IV Status: Completed infusion; IV Intake: 1000ml dd2 21:31 Drug: Pantoprazole IVP 80 mg IVP once Route: IVP; Site: left jugular; dd2 21:46 Follow up: Response: No adverse reaction dd2 23:30 Drug: Albumin IVPB 25 grams 100 ml IVPB once; (Note: Albumin 25% concentration) Volume: dd2 100 ml; Route: IVPB; Site: right femoral; 07/16 00:19 Follow up: IV Status: Infusion continued upon transfer dd2 07/15 23:30 Drug: metoCLOPramide IVP 10 mg IVP once; over 1 to 2 minutes Route: IVP; Site: right dd2 femoral; 23:45 Follow up: Response: No adverse reaction dd2 23:30 Drug: Octreotide Infusion (50 mcg/hr) - (Octreotide IV 500 mcg, NS 0.9% IV 500 ml) IV dd2 at 50 ml/hr continuous Route: IV; Rate: 50 ml/hr; Site: right femoral; 07/16 00:18 Follow up: IV Status: Infusion continued upon transfer dd2 07/15 23:31 Drug: Pantoprazole IV 8 mg/hr IV at 25 ml/hr continuous; (Standard dilution is 80 mg in dd2 250 mL NS) Route: IV; Rate: 25 ml/hr; Site: right femoral; 07/16 00:20 Follow up: IV Status: Infusion continued upon transfer dd2 07/15 23:31 Drug: Famotidine IVP 20 mg IVP once; dilute with 10 mL 0.9% NaCl; give over 2 minutes dd2 Route: IVP; Site: right femoral; 23:46 Follow up: Response: No adverse reaction dd2 23:46 Drug: Norepinephrine IV 0.1 mcg/kg/min IV at calculated rate See Administration dd2 Instructions; (Standard concentration 4 mg / 250 mL D5W); Recommended max rate 3 mcg/kg/min; Titrate 0.05 mcg/kg/min as often as every 5 minutes to achieve goal (see titration policy); Goal parameter MAP greater than 65 mmHg. Route: IV; Rate: calculated rate; Site: right femoral; 07/16 00:18 Follow up: IV Status: Infusion continued upon transfer dd2 Disposition Summary: 07/15/24 22:33 Transfer Ordered Notes: Transfer Location: [facility]-System sp4 Reason: Higher level of care sp4 Condition: Stable sp4 Problem: new sp4 Symptoms: have improved sp4 Accepting Physician: [facility] Attending Pharmacy Informatics Manager (07/16/24 00:24) dd2 Diagnosis - GI Bleed/ Gastrointestinal hemorrhage, unspecified sp4 - Acute lower GI bleed, acute rectal bleeding, acute hemorrhagic shock, exhausted sp4 vascular access, end-stage renal disease on hemodialysis, Hypoalbuminemia Forms: - Medication Reconciliation Form sp4 - SBAR form sp4 Critical care time excluding procedures: 07/15 22:18 Critical care time: Bedside Care: 36 minutes, Consultation: 12 minutes, Family sp4 Intervention: 12 minutes. Total time: 60 minutes Signatures: Dispatcher [employer] Philip Cabral MD MD sp4 AKASH GLOVER RN RN dd2 Corrections: (The following items were deleted from the chart) 19:53 19:53 BASIC METABOLIC PANEL+C.LAB.BRZ ordered. EDMS EDMS 19:53 19:53 CBC+H.LAB.BRZ ordered. EDMS EDMS 19:53 19:53 HEPATIC FUNCTION+C.LAB.BRZ ordered. EDMS EDMS 19:53 19:53 MAGNESIUM+C.LAB.BRZ ordered. EDMS EDMS 19:53 19:53 PROBNP+C.LAB.BRZ ordered. EDMS EDMS :53 19:53 PROTIME (+INR)+COAG.LAB.BRZ ordered. EDMS EDMS :53 19:53 Troponin High Sensitivity+C.LAB.BRZ ordered. EDMS EDMS :53 19:53 Chest Single View+RAD.RAD.BRZ ordered. EDMS EDMS 07/16 00:24 07/15 22:33 [facility] Attending Pharmacy Informatics Manager sp4 dd2
--- NOTE | 2024-07-15 22:34 | ER ---
Nurse's Notes [facility] Name: Benjamin Fuentes Age: 58 yrs Sex: Male : 1965 Arrival Date: 07/15/2024 Time: 19:46 Bed 15 Private MD: Diagnosis: GI Bleed/ Gastrointestinal hemorrhage, unspecified;Acute lower GI bleed, acute rectal bleeding, acute hemorrhagic shock, exhausted vascular access, end-stage renal disease on hemodialysis, Hypoalbuminemia Presentation: 07/15 20:04 Chief complaint: EMS states: PT BROUGHT IN VIA EMS FROM [facility] FOR RECTAL dd2 BLEEDING. PER EMS, NURSE STATED THAT THEY WENT IN TO CHANGE PT'S BRIEF AND NOTED LARGE AMOUNTS OF BLOOD, DARK RED AND BRIGHT RED IN BRIEF. 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 Coronavirus screen: At this time, the client does not indicate any symptoms associated with coronavirus-19. Ebola Screen: No symptoms or risks identified at this time. Initial Sepsis Screen: Does the patient meet any 2 criteria? No. Patient's initial sepsis screen is negative. Does the patient have a suspected source of infection? No. Patient's initial sepsis screen is negative. Risk Assessment: Do you want to hurt yourself or someone else? Patient reports no desire to harm self or others. Onset of symptoms was July 15, 2024. 20:04 Method Of Arrival: EMS: [facility] dd2 20:04 Acuity: WANDY 3 dd2 20:31 Acuity: WANDY 2 dd2 Historical: - Allergies: 20:09 No Known Allergies; dd2 - Immunization history:: Adult Immunizations up to date. - Infectious Disease History:: Denies. - Social history:: Smoking status: Patient denies any tobacco usage or history of. - Family history:: not pertinent. Screenin:10 [facility] ED Fall Risk Assessment (Adult) History of falling in the last 3 months, dd2 including since admission No falls in past 3 months (0 pts) Confusion or Disorientation No (0 pts) Intoxicated or Sedated No (0 pts) Impaired Gait Yes (1 pt) Mobility Assist Device Used Yes (1 pt) Altered Elimination Yes (1 pt) Score/Fall Risk Level 3 or more points = High Risk Oriented to surroundings, Maintained a safe environment, Educated pt \T\ family on fall prevention, incl call for assistance when getting out of bed, Assessed \T\ reinforced patient's understanding of fall precautions, Hourly rounding (assess needs \T\ fall precautionary measures) done. Abuse screen: Denies threats or abuse. Nutritional screening: No deficits noted. Tuberculosis screening: No symptoms or risk factors identified. Assessment: 20:10 General: Appears ill, Behavior is calm, cooperative, appropriate for age. Pain: dd2 Complains of pain in right femoral area and suprapubic area Pain does not radiate. Pain currently is 4 out of 10 on a pain scale. Neuro: Level of Consciousness is awake, alert, obeys commands, Oriented to person, place, time, situation, Appropriate for age. Cardiovascular: Heart tones S1 S2 present Edema is 2+ to left upper arm is 4+ to right wrist, right hand, right fingers, left elbow, left forearm, left wrist and left hand Rhythm is sinus arrythmia. Respiratory: Airway is patent Respiratory effort is even, unlabored, Respiratory pattern is regular, symmetrical, Breath sounds are clear bilaterally. GI: Abdomen is bruised on suprapubic area Stools are reported to be DARK BLOODY, BRIGHT RED BLOOD. Bowel sounds present X 4 quads. Abdomen is tender to palpation in suprapubic area, right lower quadrant and left lower quadrant Reports lower abdominal pain, constipation, nausea. : Reports DIALYSIS, NO URINE OUT. EENT: No deficits noted. Derm: Skin temperature is cool Wound noted RT BKA, LT LOWER LEG, LT HEEL, LT WRIST, LT ARM Bruising that is dark purple. Musculoskeletal: Amputation of RT BKA. Swelling present in LT ARM, RT HAND. Vital Signs: 20:04 BP 106 / 76; Pulse 81; Resp 16; Pulse Ox 98% ; Weight 86.64 kg (M); dd2 20:09 BP 87 / 68; Pulse 76; Resp 16; Temp 98.2; Pulse Ox 98% ; dd2 20:16 BP 73 / 43; Pulse 75; Resp 15; Pulse Ox 100% on 2 lpm NC; dd2 20:30 BP 77 / 40; Pulse 78; Resp 15; Pulse Ox 100% on 2 lpm NC; dd2 20:45 BP 78 / 39; Pulse 74; Resp 15; Pulse Ox 100% on 2 lpm NC; dd2 21:15 BP 82 / 62; Pulse 70; Resp 15; Pulse Ox 100% on 2 lpm NC; dd2 21:45 BP 83 / 63; Pulse 77; Resp 15; Pulse Ox 100% on 2 lpm NC; dd2 22:02 BP 83 / 63; Pulse 79; Resp 16; Pulse Ox 100% on 2 lpm NC; dd2 23:10 BP 86 / 66; Pulse 76; Resp 15; Pulse Ox 100% on 2 lpm NC; dd2 23:20 BP 73 / 54; Pulse 76; Resp 15; Pulse Ox 100% on 2 lpm NC; dd2 23:25 BP 84 / 65; Pulse 72; Resp 15; Temp 98.5; Pulse Ox 100% on 2 lpm NC; dd2 22:02 ALL VITAL SIGNS DOCUMENTED ON THE BLOOD TRANSFUSION FLOW SHEET X2 UNITS dd2 [place] Coma Score: 20:10 Eye Response: spontaneous(4). Motor Response: obeys commands(6). Verbal Response: dd2 oriented(5). Total: 15. 22:22 Eye Response: spontaneous(4). Motor Response: obeys commands(6). Verbal Response: sp4 oriented(5). Total: 15. ED Course: 19:47 Patient arrived in ED. [id number] 19:52 Philip Cárdenas MD is Attending Physician. sp4 20:03 AKASH GLOVER RN is Primary Nurse. dd2 20:09 Triage completed. dd2 20:09 Arm band placed on right wrist. Patient placed in an exam room, on a stretcher, on dd2 pulse oximetry. 20:10 Patient has correct armband on for positive identification. Placed in gown. Bed in low dd2 position. Call light in reach. Side rails up X2. Provided Education on: CALL LIGHT, BLOOD INFUSION, CENTRAL LINE. Client placed on continuous cardiac and pulse oximetry monitoring. NIBP monitoring applied. laboratory equipment installer on. Door closed. Noise minimized. Warm blanket given. Pillow given. Verbal reassurance given. 20:10 Oxygen administration via nasal cannula \T\ 2L/min. dd2 20:40 Initial lab(s) drawn, by ED staff, sent to lab. Inserted saline lock: 18 gauge in left dd2 EJ, using aseptic technique. ,using aseptic technique. PLACED BY DR. DELA CRUZ Blood collected. Flushed with 10 mL NS. 21:40 EKG done, by ED staff, reviewed by Philip Cárdenas MD. dd2 21:45 Assisted provider with central line placement. Set up central line tray. Triple lumen dd2 line placed in right femoral. Line placed by Philip Cárdenas MD Placement verified by blood return, Dressed with Tegaderm, Blood was collected. Patient tolerated well. Before procedure, did Practitioner(s) obtain informed consent? Yes. Patient \T\ family education about procedure, CLABSI prevention and S/S of infection? Yes. Time-out/Briefing performed prior to start of procedure? Yes. Was handwashing/sanitizing done immediately prior to procedure? Yes. Was patient positioned to in a way to prevent air embolism? Yes. Was procedure site sterilized? Yes, with chlorhexidine. Was the site allowed to dry? Yes. Was local anesthetic and/or sedation utilized? Yes. During the procedure, did the Practitioner(s) maintain a sterile field? Yes. Were unused ports clamped during insertion? Yes. Was blood aspirated from each lumen? Yes. After the procedure, did the Practitioner(s) clean the site and apply a sterile dressing? Yes. 21:50 Consent for blood and/or blood product transfusion explained by staff, explained by dd2 physician, signed by patient, Procedure consent explained by staff, explained by physician, signed by patient. 21:[address] [facility] called to initiate patient transfer, spoke with Uriel. Patient requesting [facility]. 21:57 XRAY Chest (1 view) In Process Unspecified. EDMS 22:[address] [facility] of patient going to be flighted to location. ty 23:15 Report given to JESSE MICHAEL MICU [facility]. dd2 23:21 [facility] called for patient pickup ETA 10 Minutes. ty 07/16 00:22 Type And Screen Sent. dd2 00:27 Patient transferred, IV remains in place. dd2 Administered Medications: 07/15 21:01 Drug: Albumin IVPB 25 grams 100 ml IVPB once; (Note: Albumin 25% concentration) Volume: dd2 100 ml; Route: IVPB; Site: left jugular; 21:16 Follow up: Response: No adverse reaction dd2 22:01 Follow up: IV Status: Completed infusion; IV Intake: 100ml dd2 21:01 Drug: NS 0.9% IV 1000 ml IV at 1000 ml once; to be given as a bolus over 60 minutes dd2 Route: IV; Rate: 1000 ml; Site: left jugular; 21:16 Follow up: Response: No adverse reaction 22: Follow up: IV Status: Completed infusion; IV Intake: 1000ml : Drug: Pantoprazole IVP 80 mg IVP once Route: IVP; Site: left jugular; dd2 21:46 Follow up: Response: No adverse reaction 23:30 Drug: Albumin IVPB 25 grams 100 ml IVPB once; (Note: Albumin 25% concentration) Volume: dd2 100 ml; Route: IVPB; Site: right femoral; 07/16 00:19 Follow up: IV Status: Infusion continued upon transfer 07/15 23:30 Drug: metoCLOPramide IVP 10 mg IVP once; over 1 to 2 minutes Route: IVP; Site: right dd2 femoral; 23:45 Follow up: Response: No adverse reaction 23:30 Drug: Octreotide Infusion (50 mcg/hr) - (Octreotide IV 500 mcg, NS 0.9% IV 500 ml) IV dd2 at 50 ml/hr continuous Route: IV; Rate: 50 ml/hr; Site: right femoral; 07/16 00:18 Follow up: IV Status: Infusion continued upon transfer 07/15 23:31 Drug: Pantoprazole IV 8 mg/hr IV at 25 ml/hr continuous; (Standard dilution is 80 mg in dd2 250 mL NS) Route: IV; Rate: 25 ml/hr; Site: right femoral; 07/16 00:20 Follow up: IV Status: Infusion continued upon transfer 07/15 23:31 Drug: Famotidine IVP 20 mg IVP once; dilute with 10 mL 0.9% NaCl; give over 2 minutes dd2 Route: IVP; Site: right femoral; 23:46 Follow up: Response: No adverse reaction 23:46 Drug: Norepinephrine IV 0.1 mcg/kg/min IV at calculated rate See Administration dd2 Instructions; (Standard concentration 4 mg / 250 mL D5W); Recommended max rate 3 mcg/kg/min; Titrate 0.05 mcg/kg/min as often as every 5 minutes to achieve goal (see titration policy); Goal parameter MAP greater than 65 mmHg. Route: IV; Rate: calculated rate; Site: right femoral; 07/16 00:18 Follow up: IV Status: Infusion continued upon transfer dd2 Medication: 07/15 20:10 VIS not applicable for this client. dd2 23:15 Blood products: PRBCs X 2 units given. dd2 Intake: 22:01 IV: 1000ml; Total: 1000ml. dd2 22:01 IV: 100ml; Total: 1100ml. dd2 Outcome: 22:33 ER care complete, transfer ordered by . sp4 23:25 Transferred by helicopter to [facility], Transfer form dd2 completed. 23:25 Condition: stable 23:25 Instructed on the need for transfer, 07/16 00:24 Patient left the ED. dd2 Signatures: Dispatcher [employer] EDMS Richelle Herrmann Sergey, MD MD sp4 Arjun Parnell DIANA, RN RN dd2
[2024-07-15] MEDS ORDERED: OCTREOTIDE ACETATE 500 MCG/ML ONE (22:58)
[2024-07-15] MEDS ORDERED: METOCLOPRAMIDE 10 MG/2mL INJ ONE (22:58)
[2024-07-15] MEDS ORDERED: FAMOTIDINE 20 MG/2 ML VIAL IV ONE (22:58)
[2024-07-15] MEDS ORDERED: NA CHLORIDE 0.9% 500 ML ONE (22:59)
[2024-07-15] MEDS ORDERED: NOREPINEPHRINE BITARTRATE/D5W 4 MG/250 ML KIT IV ONE (23:33)
[2024-07-16 02:53] VITALS: O2SAT 100
[2024-07-16 03:07] VITALS: BP 84/65; TEMP 98.5
--- NOTE | 2024-07-16 14:11 | EKG ---
Test Date: 2024-07-15 Test Time: 21:37:52 [place]ron Operator: ALEXA MEASUREMENT RESULTS: Intervals: Rate: 68 VT: 134 QRSD: 152 QT: 472 QTc: 501 [place]: P: 54 VT: 134 QRS: -52 T: 32 INTERPRETIVE STATEMENTS: Sinus rhythm with sinus arrhythmia with occasional premature ventricular complexes Right bundle branch block Left anterior fascicular block Bifascicular block Abnormal ECG Compared to ECG 06/22/2024 17:31:58 Ventricular premature complex(es) now present Bifascicular block still present Electronically Signed On 07-16-24 14:10:29 [employer]BORIST CLIMBER by Marquis Rose
== END 2024-07-16 00:24 | disposition short-term general hospital (02) ==
LOC: ER 19:46
DX: K62.5 Hemorrhage of anus and rectum (principal); R57.8 Other shock; T82.598A Other mechanical complication of other cardiac and vascular devices and implants, initial encounter; E88.09 Other disorders of plasma-protein metabolism, not elsewhere classified; E11.22 Type 2 diabetes mellitus with diabetic chronic kidney disease; I13.2 Hypertensive heart and chronic kidney disease with heart failure and with stage 5 chronic kidney disease, or end stage renal disease; I50.9 Heart failure, unspecified; N18.6 End stage renal disease; Z99.2 Dependence on renal dialysis
CPT/HCPCS: 93005; 85025; 80048; 36415; 86900; 83735; 86850; 85610; 86901; 80076; 86920 ×2; 84484; 83880; 71045; 36430; 99285; 36556; J2765; J2354; J2470 ×2; P9016 ×2; P9047 ×2; J7050 ×2; J7040; J7030